=== PATIENT | female | born 1955 | race Caucasian/White ===

== ENCOUNTER → 2024-02-19 10:37 | Outpatient (REF) | payer MEDICARE, OTHER, SELFPAY ==
[2024-02-19 11:35] LABS: % Basophils 0.5 % (0-2); % Eosinophils 0.8 % (0-6); % Immature Granulocytes 0.4 % (0-0.5); % Lymphocytes 21.7 % (20.5-51.1); % Monocytes 5.2 % (1.7-9.3); % Neutrophils 71.4 % (42.2-75.2); Absolute Basophils 0.1 10^3/uL (0-0.2); Absolute Eosinophils 0.1 10^3/uL (0-0.7); Absolute Lymphocytes 2.4 10^3/uL (1.2-3.4); Absolute Monocytes 0.6 10^3/uL (0.1-0.6); Absolute Neutrophils 7.9 10^3/uL (1.4-6.5); Hematocrit 43.3 % (37.0-47.0); Hemoglobin 14.5 g/dL (12.0-16.0); Mean Corp Hgb Conc. 33.5 g/dL (33.0-37.0); Mean Corpuscular Hgb 27.8 pg (27.0-31.0); Mean Corpuscular Volume 83.1 fL (81.0-99.0); Mean Platelet Volume 10.9 fL (7.4-10.4); Nucleated Red Blood Cells % 0 %; Platelet Count 280 10^3/uL (130-400); Red Blood Cell Count 5.21 10^6/uL (4.20-5.40); White Blood Cell Count 11.1 10^3/uL (4.8-10.8)
[2024-02-19 11:50] LABS: Glycohemoglobin (HgbA1c) 6.7 % (4.0-5.6)
[2024-02-19 12:09] LABS: ALT (SGPT) 29 U/L (0-35); AST (SGOT) 30 U/L (14-36); Albumin 4.5 g/dl (3.5-5.0); Alkaline Phosphatase 99 U/L (38-126); Blood Urea Nitrogen 12 mg/dl (7-17); Calcium 9.6 mg/dl (8.4-10.2); Carbon Dioxide 26 mmol/L (22-30); Chloride 105 mmol/L (98-107); Glucose 129 mg/dl (70-99); HDL Cholesterol 42 mg/dl; LDL Cholesterol, Calculated 104 mg/dl; Potassium 4.1 mmol/L (3.5-5.1); Sodium 138 mmol/L (135-145); Total Bilirubin 0.5 mg/dl (0.2-1.3); Total Cholesterol 185 mg/dl (50-199); Total Protein 7.1 g/dl (6.3-8.2); Triglyceride 195 mg/dl (10-149); Very Low Density Lipoprotein 39 mg/dl (0-30); eGFR > 60.00
[2024-02-19 12:32] LABS: TSH Reflex To Free T4 0.31 uIU/ml (0.47-4.68)
[2024-02-19 13:01] LABS: Free T4 1.14 ng/dl (0.78-2.19)
== END ==
LOC: REG 10:37
PROVIDERS: ATTENDING PHYSICIAN Internal Medicine
DX: E11.65 Type 2 diabetes mellitus with hyperglycemia (principal); I10 Essential (primary) hypertension; E78.2 Mixed hyperlipidemia
CPT/HCPCS: 36415; 80053; 80061; 83036; 84439; 84443; 85025

== ENCOUNTER → 2024-03-09 10:42 | Outpatient (REF) | payer MEDICARE, OTHER, SELFPAY | LOC: DHCBC/DCA 10:42 | PROVIDERS: ATTENDING PHYSICIAN Internal Medicine Cardiovascular Disease; FAMILY PHYSICIAN Internal Medicine | DX: R07.9 Chest pain, unspecified (principal) | CPT/HCPCS: 78452; 93017; A9500; J2785 ==

== ENCOUNTER → 2024-03-12 10:01 | Outpatient (REF) | payer MEDICARE, OTHER, SELFPAY | LOC: RAD 10:01 | PROVIDERS: ATTENDING PHYSICIAN Internal Medicine | DX: M81.0 Age-related osteoporosis without current pathological fracture (principal) | CPT/HCPCS: 77080 ==

== ENCOUNTER → 2024-03-30 15:10 | Outpatient (REF) | payer MEDICARE, OTHER, SELFPAY | LOC: RAD 15:10 | PROVIDERS: ATTENDING PHYSICIAN Internal Medicine Cardiovascular Disease; FAMILY PHYSICIAN Internal Medicine | DX: I73.9 Peripheral vascular disease, unspecified (principal); Z82.49 Family history of ischemic heart disease and other diseases of the circulatory system | CPT/HCPCS: 76770 ==

== ENCOUNTER → 2024-04-16 11:00 | Outpatient (REF) | payer MEDICARE, OTHER, SELFPAY | LOC: RAD 11:00 | PROVIDERS: ATTENDING PHYSICIAN Internal Medicine Cardiovascular Disease; FAMILY PHYSICIAN Internal Medicine | DX: I73.9 Peripheral vascular disease, unspecified (principal) | CPT/HCPCS: 93922; 93925 ==

== ENCOUNTER → 2024-05-14 13:08 | Outpatient (REF) | payer MEDICARE, OTHER, SELFPAY | LOC: RAD 13:08 | PROVIDERS: ATTENDING PHYSICIAN Surgery Vascular Surgery; FAMILY PHYSICIAN Internal Medicine; REFERRING PHYSICIAN Internal Medicine Cardiovascular Disease | DX: I73.9 Peripheral vascular disease, unspecified (principal) | CPT/HCPCS: 75635; Q9967 ==

== ENCOUNTER → 2024-05-25 15:21 | Outpatient (REF) | payer MEDICARE, OTHER, SELFPAY | LOC: WDC 15:21 | PROVIDERS: ATTENDING PHYSICIAN Nurse Practitioner Adult Health | DX: Z12.31 Encounter for screening mammogram for malignant neoplasm of breast (principal); Z12.39 Encounter for other screening for malignant neoplasm of breast | CPT/HCPCS: 77063; 77067 ==

== ENCOUNTER → 2024-06-17 12:12 | Outpatient (REF) | payer MEDICARE, OTHER, SELFPAY ==
[2024-06-17 14:50] LABS: ALT (SGPT) 30 U/L (0-35); AST (SGOT) 30 U/L (14-36); Albumin 4.1 g/dl (3.5-5.0); Alkaline Phosphatase 91 U/L (38-126); Blood Urea Nitrogen 15 mg/dl (7-17); Calcium 9.2 mg/dl (8.4-10.2); Carbon Dioxide 27 mmol/L (22-30); Chloride 106 mmol/L (98-107); Glucose 117 mg/dl (70-99); HDL Cholesterol 33 mg/dl; LDL Cholesterol, Calculated 93 mg/dl; Potassium 4.3 mmol/L (3.5-5.1); Sodium 138 mmol/L (135-145); Total Bilirubin 0.5 mg/dl (0.2-1.3); Total Cholesterol 162 mg/dl (50-199); Total Protein 6.4 g/dl (6.3-8.2); Triglyceride 182 mg/dl (10-149); Very Low Density Lipoprotein 36 mg/dl (0-30); eGFR > 60.00
[2024-06-17 15:41] LABS: Microalbumin, Random Urine 1.4 mg/dl (0.6-1.7); Microalbumin/creatinine Ratio 6.7 mg/g
[2024-06-18 09:05] LABS: Glycohemoglobin (HgbA1c) 6.8 % (4.0-5.6)
== END ==
LOC: REG 12:12
PROVIDERS: ATTENDING PHYSICIAN Internal Medicine
DX: E11.65 Type 2 diabetes mellitus with hyperglycemia (principal); E78.2 Mixed hyperlipidemia; I10 Essential (primary) hypertension
CPT/HCPCS: 36415; 80053; 80061; 82043; 82570; 83036

== ENCOUNTER 2024-09-01 08:24 | Inpatient (IN) | payer MEDICARE, OTHER, SELFPAY ==
[2024-08-20 09:35] VITALS: BMI 35.2
[2024-08-20 09:57] LABS: % Basophils 0.4 % (0-2); % Immature Granulocytes 0.3 % (0-0.5); % Lymphocytes 24.2 % (20.5-51.1); % Monocytes 5.2 % (1.7-9.3); % Neutrophils 68.9 % (42.2-75.2); Absolute Basophils 0.1 10^3/uL (0-0.2); Absolute Eosinophils 0.1 10^3/uL (0-0.7); Absolute Lymphocytes 2.8 10^3/uL (1.2-3.4); Absolute Monocytes 0.6 10^3/uL (0.1-0.6); Absolute Neutrophils 7.9 10^3/uL (1.4-6.5); Hematocrit 42.7 % (37.0-47.0); Hemoglobin 14.6 g/dL (12.0-16.0); Mean Corp Hgb Conc. 34.2 g/dL (33.0-37.0); Mean Corpuscular Hgb 28.4 pg (27.0-31.0); Mean Corpuscular Volume 83.1 fL (81.0-99.0); Nucleated Red Blood Cells % 0 %; Platelet Count 266 10^3/uL (130-400); Red Blood Cell Count 5.14 10^6/uL (4.20-5.40); Red Cell Dist. Width 13.4 % (11.5-14.5); White Blood Cell Count 11.4 10^3/uL (4.8-10.8)
[2024-08-20 10:16] LABS: Blood Urea Nitrogen 15 mg/dl (7-17); Calcium 9.7 mg/dl (8.4-10.2); Carbon Dioxide 26 mmol/L (22-30); Chloride 100 mmol/L (98-107); Estimated Creatinine Clearance 76 ml/min; Glucose 187 mg/dl (70-99); Potassium 3.9 mmol/L (3.5-5.1); Sodium 141 mmol/L (135-145); eGFR > 60.00
[2024-08-20 10:17] LABS: APTT 25.2 Sec (23.4-35.0); INR 1.03; PT 13.5 Sec (11.4-14.6)
[2024-09-01] VITALS (25 sets, daily range): BP systolic 96–179; BP diastolic 42–121; BMI 35.1
[2024-09-01] MEDS: NSS 500 IV (09:09)
--- NOTE | 2024-09-01 09:09 | HP.FOC2 ---
Focused History & Physical
Chief Complaint
HPI:
Chief Complaint: PAD
HPI / Indication for Planned Procedure: 69-year-old female here for planned right common femoral endarterectomy, retrograde iliac balloon/stenting, possible bypass. Patient admits she is at her baseline health today with no recent illnesses or
changes to her medications. Patient wishes to proceed with planned procedure.
Relevant Past Medical History: Other (Arthritis, hypertension, shingles, GERD, fatty liver, cataract, diabetes)
Relevant Social History: Tobacco Use (Former)
Relevant Family History: Positive for (Hypertension, diabetes, AAA, cancer)
Relevant Past Surgical History: Positive for (Appendectomy, left shoulder surgery, multiple spine surgeries, bilateral hip replacements)
Medication
See Medication form for detailed medications: Yes
Medication List (including Herbals & OTC):
acetaminophen 325 mg tablet (Tylenol) 650 mg PO Q4H PRN PAIN 09/01/24
aspirin 81 mg chewable tablet 81 mg PO DAILY 09/01/24
atorvastatin 10 mg tablet 10 mg PO DAILY 09/01/24
bismuth subsalicylate 262 mg/15 mL oral suspension (Pepto-Bismol) 524 mg PO HS PRN HEART BURN 09/01/24
cholecalciferol (vitamin D3) 50 mcg (2,000 unit) capsule (Vitamin D3) 50 mcg PO DAILY 09/01/24
coenzyme Q10 10 mg capsule (Co Q-10) 10 mg PO DAILY 09/01/24
metformin 500 mg tablet 500 mg PO DAILY 09/01/24
multivitamin 1 tab PO DAILY 09/01/24
omega 8-nne-qyz-fish oil 1,000 mg (120 mg-180 mg) capsule (Fish Oil) 1 cap PO DAILY 09/01/24
omeprazole 20 mg capsule,delayed release 20 mg PO DAILY 09/01/24
valsartan 160 mg-hydrochlorothiazide 12.5 mg tablet 1 tab PO DAILY 09/01/24
Medications Reviewed: Yes
Allergies and Reactions
Patient has Allergies: No
Noted Allergies and Reactions:
Allergy/AdvReac Type Severity Reaction Status Date / Time
SEASONAL Allergy Unknown Uncoded 09/01/24 08:53
Pertinent Physical Exam
All Other Systems: Negative
Head/Neck: Normal
Lungs: Normal
Heart: Normal
Abdomen: Normal
Extremities: Normal
Neurological: Normal
Diagnosis / Assessment
Severe peripheral arterial disease
Plan / Procedure
69-year-old female with severe PAD, here today for planned right common femoral endarterectomy, retrograde iliac stenting, possible bypass with Dr. Zarate.
Anesthesia/Sedation to be done by Anesthesia Provider: Yes
[2024-09-01] MEDS: PERIDEX 0.12% ORAL RINSE 15 ML PO (09:10)
[2024-09-01] MEDS: BACTROBAN NASAL 1 GRAM NASAL (09:10)
[2024-09-01 09:29] LABS: Glucose - Point of Care 151 mg/dl (70-99)
--- NOTE | 2024-09-01 10:41 | W.SUR.PREOP ---
Pre-Operative Surgical Note
-
I have examined this patient prior to the performance of the scheduled procedure.
The patient's condition is unchanged from the time of the current History and
Physical and the patient is able to undergo the scheduled procedure.
[2024-09-01 12:50] LABS: ACT-LR - POC 279 Seconds (116-155)
[2024-09-01 13:53] LABS: ACT-LR - POC 289 Seconds (116-155)
[2024-09-01 14:52] LABS: ACT-LR - POC 208 Seconds (116-155)
[2024-09-01 15:55] LABS: Glucose - Point of Care 183 mg/dl (70-99)
[2024-09-01 16:00] LABS: Hematocrit 37.2 % (37.0-47.0); Hemoglobin 12.6 g/dL (12.0-16.0); Mean Corp Hgb Conc. 33.9 g/dL (33.0-37.0); Mean Corpuscular Hgb 28.8 pg (27.0-31.0); Mean Corpuscular Volume 85.1 fL (81.0-99.0); Mean Platelet Volume 10.8 fL (7.4-10.4); Platelet Count 216 10^3/uL (130-400); Red Blood Cell Count 4.37 10^6/uL (4.20-5.40); Red Cell Dist. Width 14.4 % (11.5-14.5); White Blood Cell Count 13.7 10^3/uL (4.8-10.8)
--- NOTE | 2024-09-01 16:05 | PTCARENOTE ---
5fr femoral sheath pulled by Gavin TORRES at 15:56. Manual pressure held for 20 minutes, hemostasis obtained at 16:17. No bleeding or hematoma noted. SUPPLIER RELATIONSHIP DIRECTOR at bedside for site check. 4x4 tegaderm placed to site BP at start of hold 92/58 by
radial A line, HR 72 NSR. Post hemostasis BP 117/51 HR 67. Left DP pulse confirmed with doppler.
[2024-09-01 16:17] LABS: INR 1.18; PT 14.8 Sec (11.4-14.6)
[2024-09-01 16:18] LABS: APTT 28.8 Sec (23.4-35.0)
--- NOTE | 2024-09-01 16:25 | CON.INTV ---
Consultation
Consultation Request
Date/Time Consultation Requested: 09/01/2024-4:30 PM
Date/Time Consultation Performed: 09/01/2024-4:30 PM
Requesting Provider: Vascular surgery
Performing Provider: Dr. Reed
Reason for Consultation: Postoperative critical care management
Medical History
-
Chief Complaint: PAD
History of Present Illness:
69-year-old female with a history of hypertension, obesity, fatty liver, GERD, cataract, diabetes who is a former smoker and has significant PAD-underwent right common femoral endarterectomy with stenting-outside production inspector consulted for postoperative
critical care management 09/01/2024. The patient is seen postoperatively in the surgical intensive care unit. Operative records were reviewed. She denies any shortness of breath, chest pain, productive cough, pleurisy, abdominal pain, increased
leg swelling or new numbness. Pulses are intact.
Past Medical History
Past Medical History: None (Hypertension. GERD. Obesity. Fatty liver. Cataract. Diabetes. Shingles. Former smoker. Appendectomy. Left shoulder surgery. Spine surgeries. Bilateral hip replacements.)
Social History
Tobacco: Former Smoker ([id number] quit 3 years ago)
Living: With Family
Occupational Exposures: No known asbestos exposure
Environmental Exposures: No known tuberculosis exposure
Family History
Family History: Other (Father-hypertension diabetes and atrial fibrillation. Mother-aortic aneurysm. Paternal aunt-breast cancer. Sister-pancreatic cancer.)
Allergies / Home Medications
Allergies
Allergy/AdvReac Type Severity Reaction Status Date / Time
pollen extracts Allergy SEASONAL Verified 09/01/24 15:58
Home Medications
�Medication �Instructions �Recorded �Confirmed �Last Taken �Type
acetaminophen 325 mg tablet 650 mg PO Q4H PRN PAIN 09/01/24 09/01/24 Unknown History
(Tylenol)
aspirin 81 mg chewable tablet 81 mg PO DAILY 09/01/24 09/01/24 08/31/24 12:00 History
atorvastatin 10 mg tablet 10 mg PO DAILY 1009/01/24 08/31/24 12:00 History
bismuth subsalicylate 262 mg/15 mL 524 mg PO HS PRN HEART BURN 09/01/24 09/01/24 Unknown History
oral suspension (Pepto-Bismol)
cholecalciferol (vitamin D3) 50 50 mcg PO DAILY 09/01/24 09/01/24 08/31/24 12:00 History
mcg (2,000 unit) capsule (Vitamin
D3)
coenzyme Q10 10 mg capsule (Co 10 mg PO DAILY 09/01/24 09/01/24 08/31/24 12:00 History
Q-10)
metformin 500 mg tablet 500 mg PO DAILY 09/01/24 09/01/24 08/31/24 12:00 History
multivitamin 1 tab PO DAILY 09/01/24 09/01/24 08/31/24 12:00 History
omega 2-bnp-jdo-fish oil 1,000 mg 1 cap PO DAILY 09/01/24 09/01/24 08/31/24 12:00 History
(120 mg-180 mg) capsule (Fish Oil)
omeprazole 20 mg capsule,delayed 20 mg PO DAILY 09/01/24 09/01/24 08/31/24 12:00 History
release
valsartan 160 1 tab PO DAILY 09/01/24 09/01/24 08/31/24 12:00 History
mg-hydrochlorothiazide 12.5 mg
tablet
Review of Systems
-
Unable to Obtain full review of systems at this time due to: Other (Per HPI)
Vitals / Labs / Diagnostic Testing
Vital Signs
Temp Pulse Resp BP Pulse Ox
99.6 F 87 18 104/66 97
09/01/24 15:45 09/01/24 16:00 09/01/24 16:00 09/01/24 16:00 09/01/24 16:00
Lab Data
09/01/24 15:51
Laboratory Results
09/01/24
15:51
PT 14.8 H
INR 1.18
APTT 28.8
Diagnostic Testing:
Physical Exam
-
Exam:
Well-nourished and well-developed in no apparent distress
HEENT-atraumatic, normocephalic
Neck-supple, no JVD, no bruit
Heart-regular rate and rhythm-no murmurs, rubs or gallops
Chest-clear to auscultation, no wheezes, crackles
Back-no tenderness
Abdomen-soft, nontender, nondistended, no hepatosplenomegaly
Extremities-no cyanosis, clubbing, edema and good peripheral pulses
Integument-intact, no rashes, lesions or ecchymosis
Neurology-alert and oriented, nonfocal motor and sensory exam
Assessment
-
69-year-old female with a history of hypertension, obesity, fatty liver, GERD, cataract, diabetes who is a former smoker and has significant PAD-underwent right common femoral endarterectomy with stenting-outside production inspector consulted for postoperative
critical care management 09/01/2024.
PAD status post right common femoral endarterectomy and patch angioplasty/angioplasty and stenting right external iliac artery-Dr. Zarate-09/01/2024
Mild leukocytosis-WBC 13.7
Hyperglycemia-blood sugar 182
Obstructive sleep apnea suspected
Conditions present prior to admission:
Hypertension.
GERD.
PAD-with claudication both lower extremities
Vasovagal syncope-1989 [facility]-no recurrence
Obesity.
Fatty liver.
Cataract.
Diabetes.
Shingles.
Former [id number]-year quit 2012
Appendectomy. Left shoulder surgery. Spine surgeries. Bilateral hip replacements.
Plan
Postoperative surgical intensive care unit monitoring
Supplemental oxygen as needed
Incentive spirometry
Aspiration precautions
Nebulizers if needed-currently not bronchospastic
Obstructive sleep apnea suspected-heavy snoring and witnessed apneas
Neuro and vascular checks per protocol
Vascular surgery following-correspondence and operative notes reviewed
Monitor hemoglobin
Transfuse if needed
Monitor blood sugar
Insulin supplementation as needed
DVT prophylaxis
Early nutrition
Early mobilization
Outpatient pulmonary evaluation-former smoker, needs yearly low-dose lung cancer screening CT and likely has obstructive sleep apnea-needs polysomnogram
Critical care statement: A total of 50 minutes of critical care time was provided for this patient today. This includes management of unstable vital signs, evaluation of the patient at bedside, reviewing the patient's pertinent medical records
including radiographs, microbiology, laboratory evaluations, and discussion with primary team, consultants, pharmacy, nutrition, physical therapy, case management, charge nurse, critical care nursing, and respiratory therapy.
Diagnostic data:
Chest x-ray 08/20/2024-NAD, no convincing focal infiltrates
CT abdomen 05/14/2024-lung bases are clear, 50 to 75% stenosis common femoral and superficial femoral arteries on the right side and 50% stenosis on the left and 50 to 75% stenosis left SFA
Nuclear stress test 03/09/2024-EF 73%, moderate risk study
Data Reviewed
-
EKG: Report reviewed by me
Radiology: Report reviewed by me
CT Scan: Report reviewed by me
Medical Tests (Nuc Med, Echo etc): Report reviewed by me
Labs: Labs reviewed by me
Old Records: Reviewed
Critical Care Time (in minutes): 50
[2024-09-01 16:36] LABS: Blood Urea Nitrogen 16 mg/dl (7-17); Calcium 8.3 mg/dl (8.4-10.2); Carbon Dioxide 23 mmol/L (22-30); Chloride 107 mmol/L (98-107); Estimated Creatinine Clearance 87 ml/min; Glucose 182 mg/dl (70-99); Potassium 3.6 mmol/L (3.5-5.1); Sodium 143 mmol/L (135-145); eGFR > 60.00
[2024-09-01] MEDS: DILAUDID 0.25 MG IV (16:52)
[2024-09-01] MEDS: NSS 1000 IV (17:12)
[2024-09-01 18:13] LABS: Glucose - Point of Care 212 mg/dl (70-99)
--- NOTE | 2024-09-01 18:45 | PTCARENOTE ---
Pt arrived to ICU from PACU, s/p R common FEA with ileac stenting. Pt awake and alert, oriented x3, Good sensation of all exts. L rad A-line with + cuff correlation. NS @ 80 ml/hr via L AC int. Pt afeb, BP stable 111/50. + pulses with doppler noted
on DPs and PTs bilat. Dry drsg on L groin , no hematoma or bleeding, dry drsg with ROSE MARIE drain on R groin, also no hematoma or bleeding noted. Pt on 2l nc, O2 sat=98%, lobes clear, sl diminished at bases bilat. Abd round, lg, +BSs, Clear liq dinner
ordered. Zarate cath in place, draining mod amt of yellow urine. All questions answered, pt's sister in room, call frausto at pt's side.
[2024-09-01] MEDS: NOVOLOG FLEXPEN-LOW RESISTANCE 2 UNITS SC (18:53)
--- NOTE | 2024-09-01 19:53 | OR.RPT ---
Operative Report
Operative Report
Date of Operation: 09/01/2024
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
Post Op Diagnosis: Severe iliofemoral peripheral arterial occlusive disease with debilitating right lower extremity claudication
Procedure:
1.) Right common femoral artery endarterectomy with patch angioplasty using bovine pericardium
2.) Balloon angioplasty and stenting of right external iliac artery (overlapping [place] VBX stents 7 mm x 59 mm proximal; 7 mm x 59 mm mid; 7 mm x 39 mm distal)
3.) Ultrasound-guided percutaneous access to the left common femoral artery
4.) Diagnostic aortobiiliac arteriogram
Surgeon: Surya Zarate III, MD
Assembly Leader: Elly Meléndez MD PGY-8
Anesthesia: General
Complications: None
Estimated Blood Loss: 50 cc
History and Indications for Procedure: 69-year-old female with severe right-sided iliofemoral disease. We brought her to the operating room for hybrid revascularization.
Procedure in Detail: Glenna Bradford was correctly identified and placed supine on the operating table. After adequate induction of anesthesia, the abdomen, pelvis, and bilateral groins to the thighs were prepped and draped in usual sterile
fashion. Preoperative antibiotics were administered. A time-out procedure was performed with the nursing and anesthesia staff confirming the patient's identity as well as the nature and laterality of the procedure. Ultrasound guidance was used to
identify the right common femoral artery and femoral bifurcation. This was marked at the skin level and the incision was planned accordingly. I made a vertical incision over the right groin. Electrocautery was used to dissect the subcutaneous
tissue. Lymphatics were ligated and divided between silk ties and metal clips. Through a combination of sharp dissection and electrocautery, I identified the common femoral artery. The distal external iliac artery was encircled with a vessel loop
underneath the inguinal ligament. Dissection was then continued distally. The femoral bifurcation was identified as well as the proximal superficial femoral artery and profunda femoral artery. The proximal superficial femoral artery was encircled
with a vessel loop. The proximal profunda femoral artery was encircled with a vessel loop.
The patient was systemically heparinized. I punctured the right BOX FINISHER in a retrograde fashion with a micropuncture needle and upsized to a 5 Fr sheath over a Bentson wire. We attempted to cross the right external iliac artery occlusion retrograde
using a Glidewire and Quickcross catheter but could not reenter proximally into the true lumen despite multiple attempts. I therefore decided to try an up and over approach. Under ultrasound guidance the left common femoral artery was identified.
The proximal and distal extent of the femoral head was marked at the skin level. Under ultrasound guidance the left common femoral artery was punctured with a micropuncture needle in a retrograde fashion and upsized to a 5 Stateless sheath over a
Bentson wire. The Bentson wire was advanced into the distal abdominal aorta along with a soriano's hook catheter. A diagnostic aortobiiliac arteriogram was performed demonstrating a patent distal abdominal aorta. The right common iliac artery
was patent with peripheral calcification identified. The right internal iliac artery was widely patent. The right external iliac artery was occluded.
I selected the right internal iliac artery with a Glidewire and soriano's the catheter. I was then able to advance the catheter up and over the aortic bifurcation into the iliac bifurcation. I was then able to advance the Glidewire through the
right external iliac artery occlusion into the distal external iliac artery. Through the 5 Stateless sheath in the right femoral access I then snared the up and over Glidewire and pulled it out through the 5 Stateless sheath thereby establishing up and
over wire access. I then carefully advanced the Quickcross catheter retrograde over the Glidewire from the 5 Stateless sheath on the right to the aortic bifurcation. I then pulled the wire back and readvanced the Glidewire into the abdominal aorta
without difficulty. I then exchanged out for a [place] wire. I then upsized to a 6 Stateless 45 cm sheath and brought that to the right common iliac artery. Under roadmap guidance and oblique view I then brought into position a 7 mm x 59 mm [place] VBX
stent. This was positioned in the desired location in order to preserve the internal iliac artery. The 6 Stateless sheath was retracted to fully expose the stent and the stent was deployed by inflating the balloon to nominal pressure. Following this
I then brought an additional 7 mm x 59 mm [place] VBX stent into position extending this more distally in the external iliac artery. The stent was deployed in the desired location. A final stent, 7 mm x 39 mm [place] VBX was positioned in the more
distal external iliac artery down to the level of the inguinal ligament. This final balloon was left inflated inside the stent for proximal control.
The distal vessel loops were secured. The 6 Stateless sheath was retracted from the arteriotomy over the stent delivery shaft. An 11-blade and Sheikh scissors were used to extend the arteriotomy on the common femoral artery. The arteriotomy was
carried distally on to the proximal superficial femoral artery. The arteriotomy was extended up to the proximal common femoral artery. An endarterectomy was performed in the standard fashion with a [place] elevator. The proximal extent of the
plaque was transected and then additional elements of plaque were pulled out from the distal external iliac artery using forceps and clamps. The distal end of the plaque feathered nicely at the femoral bifurcation with no distal intimal flap
identified. The proximal superficial femoral artery and profunda femoral artery back bled nicely and were individually flushed with heparinized saline solution. The endarterectomy plane was then irrigated with heparinized saline solution and any
loose fronds of tissue were removed. I brought onto the field a precut piece of bovine pericardium and this was used as a patch. The patch was then sewn in place using a running 5-0 Prolene suture. Prior to the completion of the anastomosis I
deflated the balloon and removed the wire, sheath and balloon from the artery. I forward and back bled the artery. The anastomosis was then completed. The proximal and distal vessel loops were then released. There was an excellent pulse in the
common femoral artery, proximal superficial femoral artery and proximal profunda femoral artery. Excellent quality doppler signals were audible in the superficial femoral artery and profunda femoral artery. The patch suture line was closely
inspected for hemostasis which was achieved.
Hemostasis was achieved in the wound bed. Protamine was administered. The wound was irrigated with copious amounts of warm saline. The wound was then closed in multiple layers and a sterile ROSE MARIE dressing was applied. The left femoral sheath was
secured in place with the plan to pull it in the recovery room.
The patient tolerated the procedure well and was taken to the PACU in stable condition.
Attestation: I was present and responsible for the entire procedure
Signed:
Surya Zarate III, MD
[facility]
[phone] (iypv)
--- NOTE | 2024-09-01 20:00 | PTCARENOTE ---
Assumed care of pt from dayshift. Pt AAOx3, good movement and sensation of low exts. L radial A-line zeroed, + cuff correlation. VSS. B/L groin dsgs CDI, no hematoma or bleeding. R groin dsg with ROSE MARIE drain. + DP and PT pulses with Doppler. Pt on
2L NC, O2 sat 97-98%. Lungs CTA. Zarate draining clear yellow urine. Call frausto within reach.
[2024-09-01 21:45] LABS: Glucose - Point of Care 193 mg/dl (70-99)
[2024-09-01] MEDS: HEPARIN 5000 UNITS SC (23:09)
[2024-09-01] MEDS: HEPARIN SC (23:37)
[2024-09-02] VITALS (20 sets, daily range): BP systolic 105–138; BP diastolic 47–82; BMI 35.2
--- NOTE | 2024-09-02 | PTCARENOTE ---
Pt reassessed. no changes noted. Call frausto within reach.
--- NOTE | 2024-09-02 04:23 | DOWNTIME ---
There was a [employer] Knowledge Client Supervisor Housecleaner Downtime on 09/02/2024 from 0100 to 09/02/2024 at 0355. Downtime documentation of patient's care, including medication administrations, has been reconciled in the electronic record per guidelines. Refer to the
patient's paper chart under the miscellaneous tab to see printed paper medication records and downtime forms.
[2024-09-02] MEDS: NSS 1000 IV (04:47)
[2024-09-02 05:01] LABS: Hematocrit 33.6 % (37.0-47.0); Hemoglobin 11.3 g/dL (12.0-16.0); Mean Corp Hgb Conc. 33.6 g/dL (33.0-37.0); Mean Corpuscular Hgb 27.6 pg (27.0-31.0); Mean Corpuscular Volume 82.2 fL (81.0-99.0); Mean Platelet Volume 11.2 fL (7.4-10.4); PT 14.1 Sec (11.4-14.6); Platelet Count 238 10^3/uL (130-400); Red Blood Cell Count 4.09 10^6/uL (4.20-5.40); Red Cell Dist. Width 14.5 % (11.5-14.5); White Blood Cell Count 13.3 10^3/uL (4.8-10.8)
[2024-09-02 05:16] LABS: Blood Urea Nitrogen 12 mg/dl (7-17); Calcium 8.5 mg/dl (8.4-10.2); Carbon Dioxide 23 mmol/L (22-30); Chloride 108 mmol/L (98-107); Estimated Creatinine Clearance 101 ml/min; Glucose 135 mg/dl (70-99); Potassium 4.1 mmol/L (3.5-5.1); Sodium 142 mmol/L (135-145); eGFR > 60.00
[2024-09-02] MEDS: PINK BISMUTH 525 MG PO (05:30)
[2024-09-02] MEDS: ROXICODONE 5 MG PO (05:30)
[2024-09-02 07:57] LABS: Glucose - Point of Care 140 mg/dl (70-99)
--- NOTE | 2024-09-02 07:58 | W.PN.VS ---
Addendum entered and electronically signed by Eulalio Rubalcava MD 09/02/24 15:09:
Seen and examined with OUTSIDE MACHINIST HELPER's earlier this a.m. This is a late entry. Patient was without significant complaints. Abdomen is soft, nondistended, nontender. Right groin dressing clean dry and intact. No hematoma. Foot is warm. Palpable PT pulse.
Left groin also flat. Left foot warm with excellent Doppler PT signal. Plan/as discussed and noted below.
Original Note:
Today's Communication / Plan
-
Seen and assessed with Dr. Rubalcava
Assessment/Plan
-
POD #1 Right common femoral artery endarterectomy with patch angioplasty using bovine pericardium
Balloon angioplasty and stenting of right external iliac artery
Plan:
-Out of bed to chair this morning
-DC A-line
-DC IV fluids
-DC Zarate
-May transfer to 2 N./2 S. later today
Subjective Data
-
Date of Service: September 02, 2024
Patient seen and assessed this a.m. with Dr. Rubalcava. No events overnight. Denies pain at this time. Doing well overall.
Objective Data
-
Vital Signs
Temp Pulse Resp BP Pulse Ox
98.3 F 63 10 109/58 98
09/02/24 07:00 09/02/24 07:30 09/02/24 07:30 09/02/24 07:00 09/02/24 07:30
Intake and Output
09/01/24 09/02/24 09/03/24
06:59 06:59 06:59
Intake Total 1620 / 1700 80 / 80
Output Total 1800 / 1800
Balance -180 / -100 80 / 80
Intake:
Oral fluids 460 / 460
IV fluids (Total) 1160 / 1240 80 / 80
NSS 1160 / 1240 80 / 80
Output:
Drain Output (Total) 0 / 0
Right 0 / 0
Urine, Zarate 1800 / 1800
Lab Results
09/02/24 04:39
09/02/24 04:39
Calcium 8.5 mg/dl (8.4-10.2) 09/02/24 04:39
Physical Exam
-
AAOx3
No tachypnea on room air
No tachycardia
Abdomen soft, nontender
Jack site clean, dry, intact, soft. No drainage noted
Puncture site dressing clean, dry, intact, soft, flat
Bilateral feet warm
Palpable right PT pulse, + Doppler signals left PT bilateral DPs
[2024-09-02] MEDS: NOVOLOG FLEXPEN-LOW RESISTANCE SC ×3 (08:07→17:19)
[2024-09-02] MEDS: ORETIC 12.5 MG PO (08:40)
[2024-09-02] MEDS: THERAGRAN 1 TABLET PO (08:41)
[2024-09-02] MEDS: VITAMIN D3 (cholecalciferol) 50 MCG PO (08:41)
[2024-09-02] MEDS: LIPITOR 10 MG PO (08:41)
[2024-09-02] MEDS: HEPARIN 5000 UNITS SC ×3 (08:41→23:51)
[2024-09-02] MEDS: LOW STRENGTH ASPIRIN 81 MG PO (08:41)
[2024-09-02] MEDS: PROTONIX 40 MG PO (08:41)
[2024-09-02 08:48] LABS: Magnesium 1.8 mg/dl (1.6-2.3)
[2024-09-02] MEDS: DIOVAN 160 MG PO (09:03)
[2024-09-02 09:43] LABS: Glycohemoglobin (HgbA1c) 7.3 % (4.0-5.6)
--- NOTE | 2024-09-02 10:21 | PTCARENOTE ---
Assumed care of pt from children's aide RN. AAOx3. NSR on policy services representative. SpO2 96% on room air. VSS. L radial francisco j removed. Gauze and Tegaderm placed over radial site. B/L groin dressing CDI. ROSE MARIE drain to R groin. Zarate removed. IVF discontinued.
Vascular at bedside this morning. Plan for downgrade later today to 2N or 2S. B/L posterior tibial and dorsalis pedis pulses present with doppler. L radial pulse palpable. Pt tolerating clear liquids. Assessment documented. Pt resting in bed, call
frausto in reach. Instructed pt to call for assistance with getting OOB.
--- NOTE | 2024-09-02 11:36 | CM ---
CM following re: discharge planning.
Discussed in Rounds, reviewed pt's chart, met with pt.
Pt is a 69 year old female, admitted with primary dx of POD #1 Right common femoral artery endarterectomy.
Pt reports she lives alone 2SH, 2 steps to enter, has no children, has supportive sister and a dog. Pt described herself as independent in all areas, uses a cane as needed. No VN or SNF history.
PCP: Alberto Jovel
Pharmacy: [facility]
D/C plan: home with anticipated no needs. Sister to transport at discharge.
CM will follow with discharge plan updates as hospitalization progresses
[2024-09-02] MEDS: DILAUDID 0.5 MG IV (11:41)
[2024-09-02 12:46] LABS: Glucose - Point of Care 135 mg/dl (70-99)
--- NOTE | 2024-09-02 14:36 | PTCARENOTE ---
Assessment unchanged. Neurovascular checks remain WDL. Transfer to tele order placed. Awaiting bed assignment.
[2024-09-02] MEDS: TYLENOL 650 MG PO ×2 (16:03→21:46)
[2024-09-02 17:30] LABS: Glucose - Point of Care 147 mg/dl (70-99)
[2024-09-02] MEDS: XARELTO 2.5 MG PO (19:57)
[2024-09-02 21:37] LABS: Glucose - Point of Care 155 mg/dl (70-99)
[2024-09-03] VITALS (7 sets, daily range): BP systolic 106–163; BP diastolic 62–71
[2024-09-03] MEDS: ROXICODONE 5 MG PO ×3 (00:03→17:34)
[2024-09-03] MEDS: DILAUDID 0.5 MG IV (03:51)
[2024-09-03 07:29] LABS: Glucose - Point of Care 158 mg/dl (70-99)
[2024-09-03 07:30] LABS: Hematocrit 34.7 % (37.0-47.0); Hemoglobin 11.8 g/dL (12.0-16.0); Mean Corpuscular Hgb 28.9 pg (27.0-31.0); Mean Corpuscular Volume 84.8 fL (81.0-99.0); Platelet Count 195 10^3/uL (130-400); Red Blood Cell Count 4.09 10^6/uL (4.20-5.40); Red Cell Dist. Width 14.4 % (11.5-14.5); White Blood Cell Count 13.2 10^3/uL (4.8-10.8)
[2024-09-03 07:49] LABS: Blood Urea Nitrogen 14 mg/dl (7-17); Calcium 8.8 mg/dl (8.4-10.2); Carbon Dioxide 24 mmol/L (22-30); Chloride 104 mmol/L (98-107); Estimated Creatinine Clearance 101 ml/min; Glucose 148 mg/dl (70-99); Potassium 3.9 mmol/L (3.5-5.1); Sodium 138 mmol/L (135-145); eGFR > 60.00
--- NOTE | 2024-09-03 08:13 | W.PN.VS ---
Addendum entered and electronically signed by Eulalio Rubalcava MD 09/03/24 11:58:
Seen and examined with COMMISSARY MANAGER's. Agree with findings as noted below. Patient without any new complaints. Her abdomen is soft, nondistended, nontender. Right groin dressing is clean dry and intact. Jack dressing intact. No hematoma. Left groin
flat, no hematoma. Feet are both warm and pink with right sided 2+ DP pulse palpable, left side 1+ PT. Plan/as discussed and noted below.
Original Note:
Today's Communication / Plan
-
Seen and assessed with Dr. Rubalcava
Assessment/Plan
-
POD #2 Right common femoral artery endarterectomy with patch angioplasty using bovine pericardium
Balloon angioplasty and stenting of right external iliac artery
Plan:
-Physical therapy
-Possible discharge later today pending PT recommendations
-Continue Compass protocol
Subjective Data
-
Date of Service: September 03, 2024
Patient seen at bedside this a.m. with Dr. Rubalcava. No events overnight.
Objective Data
-
Vital Signs
Temp Pulse Resp BP Pulse Ox
99.3 F 75 18 160/71 96
09/03/24 03:40 09/03/24 03:40 09/03/24 03:40 09/03/24 03:40 09/03/24 03:40
Intake and Output
09/02/24 09/03/24 09/04/24
06:59 06:59 06:59
Intake Total 1620 / 1700 1360 / 1360
Output Total 1800 / 1800 470 / 470
Balance -180 / -100 890 / 890
Intake:
Oral fluids 460 / 460 1200 / 1200
IV fluids (Total) 1160 / 1240 160 / 160
NSS 1160 / 1240 160 / 160
Output:
Drain Output (Total) 0 / 0
Right 0 / 0
Urine, Zarate 1800 / 1800 220 / 220
Urine, Voided 250 / 250
Other:
Number of approximated MODERATE 1
amounts of urine
Number of approximated LARGE 1
amounts of urine
Lab Results
09/03/24 05:37
09/03/24 05:37
Calcium 8.8 mg/dl (8.4-10.2) 09/03/24 05:37
Magnesium 1.8 mg/dl (1.6-2.3) 09/01/24 15:51
Physical Exam
-
AAOx3
No tachypnea on room air
No tachycardia
Abdomen soft, nontender
Jack site clean, dry, intact, soft. No drainage noted
Puncture site clean, dry, intact, soft, dressing removed
Bilateral feet warm
Palpable right PT pulse, + Doppler signals left PT bilateral DPs
[2024-09-03] MEDS: NOVOLOG FLEXPEN-LOW RESISTANCE SC ×3 (08:45→17:35)
[2024-09-03] MEDS: LIPITOR 10 MG PO (08:47)
[2024-09-03] MEDS: VITAMIN D3 (cholecalciferol) 50 MCG PO (08:47)
[2024-09-03] MEDS: THERAGRAN 1 TABLET PO (08:47)
[2024-09-03] MEDS: DIOVAN 160 MG PO (08:47)
[2024-09-03] MEDS: ORETIC 12.5 MG PO (08:48)
[2024-09-03] MEDS: XARELTO 2.5 MG PO ×2 (08:48→20:28)
[2024-09-03] MEDS: PROTONIX 40 MG PO (08:48)
[2024-09-03] MEDS: LOW STRENGTH ASPIRIN 81 MG PO (08:48)
[2024-09-03] MEDS: HEPARIN 5000 UNITS SC ×2 (08:48→17:25)
--- NOTE | 2024-09-03 09:20 | W.PA-PDMP ---
[place]-PDMP
-
Checked the [place]- Prescription Drug Monitoring Program website, no red flags identified; safe to proceed with prescription.
[2024-09-03 13:47] LABS: Glucose - Point of Care 156 mg/dl (70-99)
--- NOTE | 2024-09-03 15:54 | CM ---
Met with patient.
PT rec Home Health
Reviewed options - [facility] referral placed in [facility].
PLAN: Home with visiting nurse
Sister to transport at 11am
[facility]
[2024-09-03 18:36] LABS: Glucose - Point of Care 148 mg/dl (70-99)
[2024-09-03 21:31] LABS: Glucose - Point of Care 139 mg/dl (70-99)
[2024-09-04] MEDS: HEPARIN 5000 UNITS SC ×2 (00:16→08:34)
[2024-09-04] MEDS: TYLENOL 650 MG PO ×2 (00:32→11:16)
[2024-09-04] MEDS: BENADRYL 6.25 MG IV (00:50)
[2024-09-04 02:56] VITALS: BP 137/69
[2024-09-04 07:15] VITALS: BP 138/70
[2024-09-04 07:38] LABS: Hemoglobin 12.2 g/dL (12.0-16.0); Mean Corp Hgb Conc. 33.9 g/dL (33.0-37.0); Mean Corpuscular Hgb 28.5 pg (27.0-31.0); Mean Corpuscular Volume 84.1 fL (81.0-99.0); Mean Platelet Volume 11.7 fL (7.4-10.4); Platelet Count 214 10^3/uL (130-400); Red Blood Cell Count 4.28 10^6/uL (4.20-5.40); Red Cell Dist. Width 14.1 % (11.5-14.5); White Blood Cell Count 11.8 10^3/uL (4.8-10.8)
[2024-09-04 08:01] LABS: Blood Urea Nitrogen 12 mg/dl (7-17); Calcium 8.9 mg/dl (8.4-10.2); Carbon Dioxide 27 mmol/L (22-30); Chloride 102 mmol/L (98-107); Estimated Creatinine Clearance 101 ml/min; Glucose 126 mg/dl (70-99); Potassium 3.4 mmol/L (3.5-5.1); Sodium 139 mmol/L (135-145); eGFR > 60.00
[2024-09-04 08:02] LABS: Glucose - Point of Care 151 mg/dl (70-99)
[2024-09-04] MEDS: VITAMIN D3 (cholecalciferol) 50 MCG PO (08:33)
[2024-09-04] MEDS: GLUCOPHAGE 500 MG PO (08:33)
[2024-09-04] MEDS: THERAGRAN 1 TABLET PO (08:33)
[2024-09-04] MEDS: DIOVAN 160 MG PO (08:33)
[2024-09-04] MEDS: LIPITOR 10 MG PO (08:33)
[2024-09-04] MEDS: LOW STRENGTH ASPIRIN 81 MG PO (08:33)
[2024-09-04] MEDS: ORETIC 12.5 MG PO (08:33)
[2024-09-04] MEDS: PROTONIX 40 MG PO (08:33)
[2024-09-04] MEDS: XARELTO 2.5 MG PO (08:33)
[2024-09-04] MEDS: NOVOLOG FLEXPEN-LOW RESISTANCE SC ×2 (08:34→12:42)
--- NOTE | 2024-09-04 08:37 | PN.CDI ---
CDI
- -
CDI:
Physician Documentation Request
Admit Date: 09/01/24 08:24
Dear Vascular Surgery,
Patient admitted for peripheral arterial occlusive disease.
09/01 Operative Report: 'Estimated Blood Loss: 50 cc'
Laboratory Tests
08/20/24 09/02/24
09:46 04:39
Hgb 14.6 11.3 L
Based on the above, could you clarify, in your progress note, which of the following is the most likely type of anemia you are evaluating, monitoring and/or treating?
Acute anemia multifactorial blood loss and hemodilution
Acute blood loss anemia
Hemodilution
Other
Use of terms such as suspected, likely, concern for, or probable (associated with a specific diagnosis that is being evaluated, monitored, or treated as if it exists) are acceptable and can be coded in the inpatient setting, when documented at the
time of discharge.
Thank you,
Teresa Cao RN, BSN
CDI Specialist
Available via [place] text
Please use your independent medical judgment in providing your response.
--- NOTE | 2024-09-04 10:01 | W.PN.VS ---
Today's Communication / Plan
-
See below.
Assessment/Plan
-
POD #3 Right common femoral artery endarterectomy with patch angioplasty using bovine pericardium
Balloon angioplasty and stenting of right external iliac artery
Plan:
-Discharge to [facility] home with visiting nursing
-Continue Compass protocol
-Follow-up placed in discharge instructions
Subjective Data
-
Date of Service: September 04, 2024
Patient seen and examined at bedside, offers no complaints. Reports tolerating p.o. diet. Reports well-managed postoperative pain with current pain medication regimen. Denies nausea, vomiting, fever, and chills. Reports eagerness for discharge.
Objective Data
-
Vital Signs
Temp Pulse Resp BP Pulse Ox
98.2 F 68 16 138/70 94
09/04/24 07:15 09/04/24 07:15 09/04/24 07:15 09/04/24 07:15 09/04/24 07:15
Intake and Output
09/03/24 09/04/24 09/05/24
06:59 06:59 06:59
Intake Total 1360 / 1360 2099
Output Total 470 / 470
Balance 890 / 890 2099
Intake:
Oral fluids 1200 / 1200 2099
IV fluids (Total) 160 / 160
NSS 160 / 160
Output:
Urine, Zarate 220 / 220
Urine, Voided 250 / 250
Other:
Number of approximated MODERATE 1 2
amounts of urine
Number of approximated LARGE 1
amounts of urine
Lab Results
09/04/24 06:01
09/04/24 06:01
Calcium 8.9 mg/dl (8.4-10.2) 09/04/24 06:01
Magnesium 1.8 mg/dl (1.6-2.3) 09/01/24 15:51
Physical Exam
-
AAOx3
No tachypnea on room air
No tachycardia
Abdomen soft, nontender
Jakc dressing replaced, CDI, sutures and bianca well-approximated
Puncture site clean, dry, intact, soft, dressing removed
Bilateral feet warm
Palpable right PT pulse, + Doppler signals left PT bilateral DPs
[2024-09-04] MEDS: KCL 40 MEQ PO (10:19)
[2024-09-04] MEDS: ROXICODONE 5 MG PO (11:16)
--- NOTE | 2024-09-04 11:31 | CM ---
Met with patient.
Confirmed [facility] accepted.
IMM explained & signed. In chart.
PLAN: [facility] (Media Office)
Sister to transport
Lisa
Fax #: [phone]
[2024-09-04 11:59] VITALS: BP 135/49
--- NOTE | 2024-09-05 09:23 | W.PN.UPDATE ---
Update Note
Progress Note Update
Patient called after hours physician line to report that she could not afford the Xarelto 2.5 mg PO BID as part of compass protocol. Called pharmacy and cancelled Xarelto and prescribed Plavix 75mg PO daily with aspirin 81mg po daily for DAPT
therapy.
--- NOTE | 2024-09-07 15:19 | W.PN.UPDATE ---
Update Note
Progress Note Update
CDI:
Physician Documentation Request
Admit Date: 09/01/24 08:24
Patient admitted for peripheral arterial occlusive disease.
09/01 Operative Report: 'Estimated Blood Loss: 50 cc'
Laboratory Tests
08/20/24 09/02/24
09:46 04:39
Hgb 14.6 11.3 L
Based on the above, could you clarify, in your progress note, which of the following is the most likely type of anemia you are evaluating, monitoring and/or treating?
Other, insignificant lab finding, returned to normal without intervention before discharge
== END 2024-09-04 14:24 | disposition home health service (06) | DRG 272 ==
LOC: 2 NORTH 08:24
PROVIDERS: Nurse Practitioner; Nurse Practitioner Acute Care; ADMITTING PHYSICIAN Surgery Vascular Surgery; CONSULT PHYSICIAN Internal Medicine Critical Care Medicine; FAMILY PHYSICIAN Internal Medicine
PROC: 04CK3ZZ Extirpation of Matter from Right Femoral Artery, Percutaneous Approach (ICD-10-PCS; 2024-09-01)
PROC: 04UK3KZ Supplement Right Femoral Artery with Nonautologous Tissue Substitute, Percutaneous Approach (ICD-10-PCS; 2024-09-01)
PROC: 047H35Z Dilation of Right External Iliac Artery with Two Drug-eluting Intraluminal Devices, Percutaneous Approach (ICD-10-PCS; 2024-09-01)
PROC: 047E34Z Dilation of Right Internal Iliac Artery with Drug-eluting Intraluminal Device, Percutaneous Approach (ICD-10-PCS; 2024-09-01)
DX: E11.51 Type 2 diabetes mellitus with diabetic peripheral angiopathy without gangrene (principal); I70.211 Atherosclerosis of native arteries of extremities with intermittent claudication, right leg; E11.65 Type 2 diabetes mellitus with hyperglycemia; E66.9 Obesity, unspecified; Z68.35 Body mass index [BMI] 35.0-35.9, adult; I10 Essential (primary) hypertension; K76.0 Fatty (change of) liver, not elsewhere classified; K21.9 Gastro-esophageal reflux disease without esophagitis; M19.90 Unspecified osteoarthritis, unspecified site; D72.829 Elevated white blood cell count, unspecified; I49.3 Ventricular premature depolarization; Z79.82 Long term (current) use of aspirin; Z79.84 Long term (current) use of oral hypoglycemic drugs; Z79.899 Other long term (current) drug therapy; Z96.643 Presence of artificial hip joint, bilateral; Z90.89 Acquired absence of other organs; Z86.19 Personal history of other infectious and parasitic diseases; Z87.891 Personal history of nicotine dependence; Z82.49 Family history of ischemic heart disease and other diseases of the circulatory system; Z83.3 Family history of diabetes mellitus
CPT/HCPCS: 88304; 88311; 35371; 36415; 37221; 71045; 71046; 80048; 82962; 83036; 83735; 85025; 85027; 85610; 85730; 86850; 86900; 86901; 93005; 97162; C1769; C1874; C1894; Q9967

== ENCOUNTER → 2024-10-01 15:06 | Outpatient (REF) | payer MEDICARE, OTHER, SELFPAY | LOC: DHSLP 15:06 | PROVIDERS: ATTENDING PHYSICIAN Internal Medicine Critical Care Medicine; FAMILY PHYSICIAN Internal Medicine | DX: G47.30 Sleep apnea, unspecified (principal); R06.83 Snoring | CPT/HCPCS: 95800 ==

== ENCOUNTER → 2024-10-05 15:02 | Outpatient (REF) | payer MEDICARE, OTHER, SELFPAY | LOC: RAD 15:02 | PROVIDERS: ATTENDING PHYSICIAN Nurse Practitioner Adult Health; FAMILY PHYSICIAN Internal Medicine | DX: Z87.891 Personal history of nicotine dependence (principal) | CPT/HCPCS: 71271 ==

== ENCOUNTER → 2024-10-13 12:29 | Outpatient (REF) | payer MEDICARE, OTHER, SELFPAY | LOC: RAD 12:29 | PROVIDERS: ATTENDING PHYSICIAN Registered Nurse; FAMILY PHYSICIAN Internal Medicine | DX: I73.9 Peripheral vascular disease, unspecified (principal) | CPT/HCPCS: 93922; 93925; 93978 ==

== ENCOUNTER → 2025-03-10 12:14 | Outpatient (REF) | payer MEDICARE, OTHER, SELFPAY ==
[2025-03-10 13:44] LABS: % Basophils 0.4 % (0-2); % Eosinophils 0.8 % (0-6); % Immature Granulocytes 0.4 % (0-0.5); % Monocytes 5.5 % (1.7-9.3); % Neutrophils 70.9 % (42.2-75.2); Absolute Eosinophils 0.1 10^3/uL (0-0.7); Absolute Lymphocytes 2.3 10^3/uL (1.2-3.4); Absolute Monocytes 0.6 10^3/uL (0.1-0.6); Absolute Neutrophils 7.5 10^3/uL (1.4-6.5); Hematocrit 43.2 % (37.0-47.0); Hemoglobin 14.4 g/dL (12.0-16.0); Mean Corp Hgb Conc. 33.3 g/dL (33.0-37.0); Mean Corpuscular Hgb 27.6 pg (27.0-31.0); Mean Corpuscular Volume 82.8 fL (81.0-99.0); Mean Platelet Volume 11.1 fL (7.4-10.4); Nucleated Red Blood Cells % 0 %; Platelet Count 273 10^3/uL (130-400); Red Blood Cell Count 5.22 10^6/uL (4.20-5.40); Red Cell Dist. Width 13.6 % (11.5-14.5); White Blood Cell Count 10.6 10^3/uL (4.8-10.8)
[2025-03-10 14:06] LABS: ALT (SGPT) 47 U/L (0-35); AST (SGOT) 35 U/L (14-36); Albumin 4.1 g/dl (3.5-5.0); Alkaline Phosphatase 104 U/L (38-126); Blood Urea Nitrogen 15 mg/dl (7-17); Carbon Dioxide 28 mmol/L (22-30); Chloride 102 mmol/L (98-107); Direct Bilirubin 0.2 mg/dl (0.0-0.4); Glucose 116 mg/dl (70-99); HDL Cholesterol 31 mg/dl; LDL Cholesterol, Calculated 101 mg/dl; Potassium 3.8 mmol/L (3.5-5.1); Sodium 141 mmol/L (135-145); Total Bilirubin 0.7 mg/dl (0.2-1.3); Total Cholesterol 172 mg/dl (50-199); Total Protein 6.6 g/dl (6.3-8.2); Triglyceride 200 mg/dl (10-149); Very Low Density Lipoprotein 40 mg/dl (0-30); eGFR > 60.00
[2025-03-10 14:13] LABS: Glycohemoglobin (HgbA1c) 7.2 % (4.0-5.6)
[2025-03-10 14:36] LABS: TSH Reflex To Free T4 0.34 uIU/ml (0.47-4.68)
[2025-03-10 15:06] LABS: Free T4 1.18 ng/dl (0.78-2.19)
== END ==
LOC: REG 12:14
PROVIDERS: ATTENDING PHYSICIAN Nurse Practitioner; FAMILY PHYSICIAN Internal Medicine
DX: I10 Essential (primary) hypertension (principal); E11.65 Type 2 diabetes mellitus with hyperglycemia; E78.2 Mixed hyperlipidemia; I73.9 Peripheral vascular disease, unspecified; K76.0 Fatty (change of) liver, not elsewhere classified; R10.32 Left lower quadrant pain
CPT/HCPCS: 36415; 80053; 80061; 82248; 83036; 84439; 84443; 85025

== ENCOUNTER 2025-03-23 06:35 | Day surgery (SDC) | payer MEDICARE, OTHER, SELFPAY ==
[2025-03-23 08:47] LABS: Glucose - Point of Care 144 mg/dl (70-99)
== END 2025-03-23 10:52 | disposition home or self-care (01) ==
LOC: GI 06:35
PROVIDERS: ATTENDING PHYSICIAN Internal Medicine Gastroenterology
DX: K29.70 Gastritis, unspecified, without bleeding (principal); K22.89 Other specified disease of esophagus; K31.7 Polyp of stomach and duodenum; K31.89 Other diseases of stomach and duodenum; R10.13 Epigastric pain; Z87.19 Personal history of other diseases of the digestive system
CPT/HCPCS: 43239; 88305; 82962; 88342

== ENCOUNTER → 2025-04-05 10:49 | Outpatient (REF) | payer MEDICARE, OTHER, SELFPAY | LOC: RAD 10:49 | PROVIDERS: ATTENDING PHYSICIAN Nurse Practitioner; FAMILY PHYSICIAN Internal Medicine | DX: K22.70 Barrett's esophagus without dysplasia (principal); K21.9 Gastro-esophageal reflux disease without esophagitis | CPT/HCPCS: 74246 ==

== ENCOUNTER → 2025-05-11 12:39 | Outpatient (REF) | payer MEDICARE, OTHER, SELFPAY | LOC: DHVS 12:39 | PROVIDERS: ATTENDING PHYSICIAN Surgery Vascular Surgery; FAMILY PHYSICIAN Internal Medicine | DX: I73.9 Peripheral vascular disease, unspecified (principal) | CPT/HCPCS: 93922; 93925; 93978 ==

== ENCOUNTER → 2025-05-25 13:06 | Outpatient (REF) | payer MEDICARE, OTHER, SELFPAY | LOC: WDC 13:06 | PROVIDERS: ATTENDING PHYSICIAN Internal Medicine | DX: Z12.31 Encounter for screening mammogram for malignant neoplasm of breast (principal) | CPT/HCPCS: 77063; 77067 ==

== ENCOUNTER → 2025-06-25 10:29 | Outpatient (REF) | payer MEDICARE, OTHER, SELFPAY ==
[2025-06-25 12:36] LABS: Microalb - Urine Creatinine 164.900 mg/dl
[2025-06-25 12:39] LABS: Microalbumin, Random Urine 0.6 mg/dl (0.6-1.7)
[2025-06-25 12:48] LABS: ALT (SGPT) 44 U/L (0-35); AST (SGOT) 34 U/L (14-36); Albumin 4.1 g/dl (3.5-5.0); Alkaline Phosphatase 107 U/L (38-126); Blood Urea Nitrogen 16 mg/dl (7-17); Calcium 9.0 mg/dl (8.4-10.2); Carbon Dioxide 30 mmol/L (22-30); Chloride 104 mmol/L (98-107); Glucose 146 mg/dl (70-99); HDL Cholesterol 28 mg/dl; LDL Cholesterol, Calculated 109 mg/dl; Potassium 4.3 mmol/L (3.5-5.1); Sodium 139 mmol/L (135-145); Total Protein 6.4 g/dl (6.3-8.2); Very Low Density Lipoprotein 35 mg/dl (0-30); eGFR > 60.00
[2025-06-25 13:32] LABS: Glycohemoglobin (HgbA1c) 7.2 % (4.0-5.6)
== END ==
LOC: REG 10:29
PROVIDERS: ATTENDING PHYSICIAN Registered Nurse; FAMILY PHYSICIAN Internal Medicine
DX: I73.9 Peripheral vascular disease, unspecified (principal); Z01.812 Encounter for preprocedural laboratory examination; I10 Essential (primary) hypertension; E78.2 Mixed hyperlipidemia; E11.65 Type 2 diabetes mellitus with hyperglycemia
CPT/HCPCS: 36415; 80053; 80061; 82043; 82570; 83036

== ENCOUNTER → 2025-06-29 11:10 | Outpatient (REF) | payer MEDICARE, OTHER, SELFPAY | LOC: RAD 11:10 | PROVIDERS: ATTENDING PHYSICIAN Registered Nurse; FAMILY PHYSICIAN Internal Medicine | DX: I73.9 Peripheral vascular disease, unspecified (principal) | CPT/HCPCS: 75635; Q9967 ==

== ENCOUNTER 2025-08-03 07:59 | Inpatient (IN) | payer MEDICARE, OTHER, SELFPAY ==
[2025-07-26 08:49] VITALS: BMI 33.8
[2025-07-26 09:26] LABS: Hematocrit 43.9 % (37.0-47.0); Hemoglobin 14.6 g/dL (12.0-16.0); Mean Corp Hgb Conc. 33.3 g/dL (33.0-37.0); Mean Corpuscular Volume 82.2 fL (81.0-99.0); Nucleated Red Blood Cells % 0 %; Platelet Count 256 10^3/uL (130-400); Red Cell Dist. Width 13.6 % (11.5-14.5)
[2025-07-26 09:29] LABS: INR 0.93; PT 12.8 Sec (11.4-14.6)
[2025-07-26 09:30] LABS: APTT 26.4 Sec (23.4-35.0)
[2025-07-26 09:57] LABS: Blood Urea Nitrogen 17 mg/dl (7-17); Calcium 9.7 mg/dl (8.4-10.2); Carbon Dioxide 26 mmol/L (22-30); Chloride 107 mmol/L (98-107); Estimated Creatinine Clearance 84 ml/min; Glucose 159 mg/dl (70-99); Potassium 4.5 mmol/L (3.5-5.1); Sodium 140 mmol/L (135-145); eGFR > 60.00
[2025-08-03] VITALS (7 sets, daily range): BP systolic 86–141; BP diastolic 47–63
[2025-08-03] MEDS: NSS 500 IV (09:07)
[2025-08-03] MEDS: BACTROBAN NASAL 1 GRAM NASAL (09:07)
[2025-08-03] MEDS: PERIDEX 0.12% ORAL RINSE 15 ML PO (09:07)
[2025-08-03 09:20] LABS: Glucose - Point of Care 135 mg/dl (70-99)
[2025-08-03 11:40] LABS: ACT-LR - POC 368 Seconds (116-155)
[2025-08-03 11:59] LABS: Glucose - Point of Care 148 mg/dl (70-99)
[2025-08-03 12:45] LABS: ACT-LR - POC 266 Seconds (116-155)
[2025-08-03 12:53] LABS: Glucose - Point of Care 176 mg/dl (70-99)
[2025-08-03 13:43] LABS: ACT-LR - POC 252 Seconds (116-155)
--- NOTE | 2025-08-03 14:50 | W.IMMPOSTOP ---
Surgical Immed Post Op Note
-
Primary Surgeon: Dr. Surya Zarate III, MD
Assisting Surgeon: Agusto Rea MD
Pre-op Diagnosis: chronic limb-threatening ischemia
Post-op Diagnosis: chronic limb-threatening ischemia
Procedure Performed: L femoral endarterectomy, stent of right MONORAIL CAR OPERATOR and left common and external iliac artery, stent of left SFA
Anesthesia Type: general
Specimen / Cultures: None
Estimated Blood Loss: 50 cc
Complications: None
Operative Findings: left femoral endarterectomy, retrograde access of patch angioplasty, aortogram, right MONORAIL CAR OPERATOR stenting, left common and external iliac artery stenting, left SFA stenting
[2025-08-03 14:58] LABS: Glucose - Point of Care 194 mg/dl (70-99)
[2025-08-03] MEDS: NOVOLOG vial 1 UNITS SC (15:13)
[2025-08-03 15:15] LABS: Hematocrit 32.6 % (37.0-47.0); Hemoglobin 10.9 g/dL (12.0-16.0); Mean Corp Hgb Conc. 33.4 g/dL (33.0-37.0); Mean Corpuscular Volume 81.3 fL (81.0-99.0); Platelet Count 214 10^3/uL (130-400); Red Cell Dist. Width 13.7 % (11.5-14.5)
[2025-08-03 15:28] LABS: Blood Urea Nitrogen 14 mg/dl (7-17); Calcium 7.4 mg/dl (8.4-10.2); Carbon Dioxide 25 mmol/L (22-30); Chloride 108 mmol/L (98-107); Estimated Creatinine Clearance 84 ml/min; Glucose 194 mg/dl (70-99); Potassium 3.2 mmol/L (3.5-5.1); Sodium 137 mmol/L (135-145); eGFR > 60.00
[2025-08-03] MEDS: NSS 1000 IV (16:04)
[2025-08-03 16:15] LABS: Glucose - Point of Care 219 mg/dl (70-99)
[2025-08-03] MEDS: KCL 160 MEQ IV (16:29)
[2025-08-03] MEDS: NOVOLOG FLEXPEN-LOW RESISTANCE 2 UNITS SC (16:34)
[2025-08-03] MEDS: VITAMIN C 1000 MG PO (17:13)
[2025-08-03] MEDS: PROTONIX 40 MG PO (17:13)
[2025-08-03] MEDS: LIPITOR 10 MG PO (17:14)
[2025-08-03] MEDS: VITAMIN D3 (cholecalciferol) 125 MCG PO (17:14)
[2025-08-03] MEDS: HEPARIN 5000 UNITS SC (17:14)
[2025-08-03] MEDS: TYLENOL 650 MG PO (17:15)
--- NOTE | 2025-08-03 17:28 | PTCARENOTE ---
Received pt from PACU. Pt drowsy from anesthesia but SUBRAMANIAN and follows commands. VSS. Pt c/o pain once more awake, tylenol given as requested. SR with PACs, potassium repleated. 2L NC until pt remains awake. Tolerating sips and meds without issue.
Zarate in place draining yellow urine. L groin incision covered with ROSE MARIE drain, no drainage noted, site soft, no ecchymosis, palpable pulses. NSS infusing.
[2025-08-03] MEDS: DILAUDID 0.5 MG IV (18:52)
--- NOTE | 2025-08-03 20:10 | PTCARENOTE ---
AOx3, pleasant. NSR w/ occasional PACs, palpable pulses. R radial a-line zeroed and transduced, correlates w/ cuff pressure. RA, pulse ox 94%. +bowel sounds, no BM noted. Zarate with clear yellow urine. L groin ROSE MARIE dressing in place, no drainage,
flashing green. C/O pain to L groin, 7/10-PRN dilaudid given and effective. L DP pulse palpable, LLE warm and pink. Safe environment maintained, call frausto within reach.
[2025-08-03] MEDS: ROXICODONE 5 MG PO (23:04)
[2025-08-03 23:17] LABS: Glucose - Point of Care 270 mg/dl (70-99)
[2025-08-03] MEDS: NOVOLOG FLEXPEN 5 UNITS SC (23:29)
[2025-08-04] VITALS (10 sets, daily range): BP systolic 104–144; BP diastolic 52–62; BMI 34.0
[2025-08-04] MEDS: HEPARIN 5000 UNITS SC ×3 (01:50→15:22)
--- NOTE | 2025-08-04 02:22 | DOWNTIME ---
There was a [employer] Client Dramatic Arts Historian Downtime on 08/04/2025 from 0100 to 08/04/2025 at 0215. Downtime documentation of patient's care, including medication administrations, has been reconciled in the electronic record per guidelines. Refer to the
patient's paper chart under the miscellaneous tab to see printed paper medication records and downtime forms.
[2025-08-04 04:20] LABS: Hematocrit 30.3 % (37.0-47.0); Hemoglobin 10.0 g/dL (12.0-16.0); Mean Corp Hgb Conc. 33.0 g/dL (33.0-37.0); Mean Corpuscular Volume 82.1 fL (81.0-99.0); Platelet Count 225 10^3/uL (130-400); Red Cell Dist. Width 14.1 % (11.5-14.5)
[2025-08-04 04:24] LABS: INR 1.09; PT 14.4 Sec (11.4-14.6)
[2025-08-04 04:25] LABS: APTT 26.8 Sec (23.4-35.0)
[2025-08-04 04:36] LABS: Blood Urea Nitrogen 12 mg/dl (7-17); Calcium 8.3 mg/dl (8.4-10.2); Carbon Dioxide 25 mmol/L (22-30); Chloride 110 mmol/L (98-107); Estimated Creatinine Clearance 98 ml/min; Glucose 125 mg/dl (70-99); Magnesium 2.1 mg/dl (1.6-2.3); Potassium 3.8 mmol/L (3.5-5.1); Sodium 138 mmol/L (135-145); eGFR > 60.00
[2025-08-04] MEDS: DILAUDID 0.5 MG IV ×2 (04:40→10:42)
[2025-08-04] MEDS: TUMS EX (EXTRA STRENGTH) CHEWABLE TABLET 600 MG PO (04:50)
[2025-08-04] MEDS: NSS 1000 IV (06:04)
--- NOTE | 2025-08-04 06:07 | PTCARENOTE ---
Pt assessment unchanged. Safe environment maintained, call frausto within reach. Pt assisted w/ repositioning.
--- NOTE | 2025-08-04 07:32 | W.PN.VS ---
Addendum entered and electronically signed by Eulalio Rubalcava MD 08/04/25 14:50:
Seen and examined with SARKIS Molina earlier this a.m. This is a late entry. Patient without significant complaints. Abdomen soft. Left groin dressing clean dry and intact. Groin flat. No hematoma. Feet warm with 2+ right DP pulse, left 1+ or 1+/2+
DP and PT pulses palpable. Plan/as discussed and noted below.
Original Note:
Today's Communication / Plan
-
Below plan reviewed with attending Dr. Eulalio Rubalcava M.D.
Assessment/Plan
-
Assessment: 70-year-old female POD #1 L femoral endarterectomy, stent of right TELEVISION ANCHOR and left common and external iliac artery, stent of left SFA
Plan:
Discontinue IV fluids
Discontinue arterial line
Discontinue Zarate catheter
Out of bed to chair with progression to ambulation as tolerated
PT eval and treat
Continue DAPT of aspirin 81 mg p.o. daily and Plavix 75 mg p.o. daily
Continue neurovascular checks
Subjective Data
-
Date of Service: August 04, 2025
Patient seen and examined, reports well-managed postoperative pain. Tolerating p.o. diet. Does endorse throat discomfort following surgery, making talking challenging but denies difficulty swallowing.
Objective Data
-
Vital Signs
Temp Pulse Resp BP Pulse Ox
98.1 F 66 11 132/62 94
08/04/25 04:29 08/04/25 06:00 08/04/25 06:00 08/04/25 04:05 08/04/25 06:00
Intake and Output
08/03/25 08/04/25 08/05/25
06:59 06:59 06:59
Intake Total 1250 / 1250
Output Total 1070 / 1070
Balance 180 / 180
Intake:
IV fluids (Total) 1090 / 1090
normal saline 1090 / 1090
IV piggybacks 160 / 160
Output:
Urine, Zarate 1070 / 1070
Lab Results
08/04/25 04:04
08/04/25 04:04
Calcium 8.3 mg/dl (8.4-10.2) L 08/04/25 04:04
Phosphorus 3.2 mg/dl (2.5-4.5) 08/04/25 04:04
Magnesium 2.1 mg/dl (1.6-2.3) 08/04/25 04:04
Physical Exam
-
No apparent distress, resting in bed comfortably
No tachycardia
No dyspnea on room air
ABD rotund, nondistended, nontender
Left groin monae dressing clean, dry, and intact, no evidence of hematoma, all surrounding compartments soft
Bilateral feet warm, bilateral DP pulse +1 palpable
Zarate draining clear yellow urine
[2025-08-04 07:52] LABS: Glucose - Point of Care 120 mg/dl (70-99)
[2025-08-04 08:16] LABS: Glycohemoglobin (HgbA1c) 7.3 % (4.0-5.6)
[2025-08-04] MEDS: NOVOLOG FLEXPEN-LOW RESISTANCE SC (08:17)
[2025-08-04] MEDS: THERAGRAN 1 TABLET PO (08:23)
[2025-08-04] MEDS: ROXICODONE 5 MG PO ×2 (08:39→13:35)
--- NOTE | 2025-08-04 09:18 | OR.RPT ---
Operative Report
Operative Report
Date of Operation: 08/03/2025
Pre Op Diagnosis:
1. Debilitating left lower extremity claudication
2. Calcified stenosis involving the left external iliac artery and common femoral artery
3. Diffuse left superficial femoral artery stenosis
4. Current stenosis of the distal right external iliac artery with prior common femoral artery endarterectomy
Post Op Diagnosis:
1. Debilitating left lower extremity claudication
2. Calcified stenosis involving the left external iliac artery and common femoral artery
3. Diffuse left superficial femoral artery stenosis
4. Current stenosis of the distal right external iliac artery with prior common femoral artery endarterectomy
Procedure:
1. Left common femoral artery and distal external iliac artery endarterectomy with patch angioplasty using bovine pericardium
2. Drug-coated balloon angioplasty of right distal external iliac artery stenosis (7 mm x 40 mm Lutonix)
3. Balloon angioplasty and stenting of left external iliac artery stenosis (overlapping 7 mm x 59 mm VBX stents x2)
4. Balloon angioplasty and drug-eluting stent placement to left superficial femoral artery stenosis (overlapping 6 mm x 140 mm Zilver PTX stents x 2)
5. Diagnostic aortobiiliac arteriogram
6. Diagnostic BILATERAL lower extremity arteriograms
Surgeon: Surya Zarate III, MD
Reshipping Clerk: Agusto Rea MD PGY2
Fluoroscopy:
20 minutes
416 mGy
DAP 118.09
Anesthesia: General
Complications: None
Estimated Blood Loss: 50 cc
History and Indications for Procedure: 70-year-old female with debilitating left lower extremity claudication and evidence of recurrent stenosis of the distal right external iliac artery following common femoral endarterectomy previously. She was
brought to the operating room for revascularization
Procedure in Detail: Glenna Bradford was correctly identified and placed supine on the operating table. After adequate induction of anesthesia, the abdomen, pelvis, and bilateral groins to the thighs were prepped and draped in usual sterile
fashion. Preoperative antibiotics were administered. A time-out procedure was performed with the nursing and anesthesia staff confirming the patient's identity as well as the nature and laterality of the procedure. I made a vertical incision over
the left groin. Electrocautery was used to dissect the subcutaneous tissue. Lymphatics were ligated and divided between ties and metal clips. Through a combination of sharp dissection and electrocautery, I identified the common femoral artery.
We then dissected carefully well under the inguinal ligament into the left retroperitoneum to expose the distal left external iliac artery. The distal left external iliac artery was encircled with a vessel loop underneath the inguinal ligament.
Dissection was then continued distally. The femoral bifurcation was identified as well as the proximal superficial femoral artery and profunda femoral artery. The proximal superficial femoral artery and profunda femoral artery were both soft and
encircled with vessel loops individually.
The patient was systemically heparinized. The proximal and distal vessel loops were secured. An 11-blade and Sheikh scissors were used to make and extend the arteriotomy on the common femoral artery. The arteriotomy was carried distally onto the
proximal superficial femoral artery. The arteriotomy was extended up to the distal external iliac artery. A short angled tip hockey-stick clamp was placed on the distal external iliac artery to facilitate endarterectomy. An endarterectomy was
performed in the standard fashion with a Stout elevator. The proximal extent of the plaque was transected and then additional elements of plaque were pulled out from the distal external iliac artery using forceps. The distal end of the plaque
feathered very nicely at the profunda femoral artery origin. The plaque was everted from the distal end of the superficial femoral artery. The endarterectomy plane was then irrigated with heparinized saline solution and any loose fronds of tissue
were removed. I brought onto the field a piece of bovine pericardium and this was fashioned appropriately to be used as a patch. The patch was then sewn in place using a running 5-0 Prolene suture. Prior to the completion of the anastomosis, we
forward and back flushed the artery. The anastomosis was then completed. The proximal clamp and distal vessel loops were then released. There was an excellent pulse in the common femoral artery, profunda femoral artery and proximal superficial
femoral artery. The suture line was closely inspected for hemostasis which was achieved.
Under direct visualization I then punctured the left common femoral artery patch with a micropuncture needle and upsized to a 5 Colombian sheath over a Bentson wire. The Bentson wire and soriano's hook catheter were navigated into the distal
abdominal aorta. A diagnostic aortobiiliac arteriogram was performed which demonstrated a patent distal abdominal aorta. The common iliac arteries were patent bilaterally with no significant stenosis identified. High-grade was identified in the
left external iliac artery proximal to the endarterectomy. A focal moderate to high-grade stenosis was identified in the distal right external iliac artery just beyond the end of the existing stent. The right common femoral endarterectomy,
proximal profunda femoral artery and proximal superficial femoral artery were patent.
Using a Glidewire and shepherds hook catheter we selected the right iliac system. The wire was advanced through the right common iliac, external iliac and common femoral artery. The catheter was tracked up and over into the common femoral artery.
I exchanged out for a Storq wire. I then exchanged out for a 7 Colombian 45 cm sheath. Under roadmap guidance over the Storq wire I brought into position a 7 mm x 40 mm Lutonix drug-coated angioplasty balloon. This was placed in the desired
location, inflated to nominal pressure and held in place for 3-minute inflation. Subsequent arteriogram demonstrated an excellent technical result with significant improvement and only minimal residual stenosis. Satisfied with this result we then
pulled the sheath and wire back into the left external iliac artery. The Storq wire was readvanced into the abdominal aorta. Under roadmap guidance I then placed 2 overlapping 7 mm x 59 mm [place] VBX stents in the left external iliac artery from the
origin of the external down to the distal external iliac artery at the apex of our patch angioplasty. Subsequent arteriogram demonstrated an excellent technical result with widely patent stents and no residual stenosis identified.
Additional runoff arteriogram of the left lower extremity demonstrated sluggish flow throughout the superficial femoral artery with an area of dissection flap and high-grade stenosis in the mid to distal superficial femoral artery. At this point
the 7 Colombian sheath was removed from the common femoral artery patch and the arteriotomy was repaired primarily with an interrupted 5-0 Prolene suture. Hemostasis was achieved at this suture line repair. I then punctured the common femoral artery
patch in an antegrade direction. The micro wire was advanced into the proximal superficial femoral artery and then I upsized to a 6 Colombian sheath over a Fanli websiteson wire. Under roadmap guidance using a Glidewire and quick cross catheter I was able to
navigate across the superficial femoral artery dissection and stenosis and advanced to the popliteal artery. An arteriogram confirmed proper position in the true lumen. I then exchanged out for the Enable Injections wire once again. Two overlapping 6 mm x
140 mm Zilver PTX stents were positioned in the desired location to treat the length of superficial femoral artery disease. These were individually placed and deployed successfully. The stents were then profiled with a 6 mm angioplasty balloon.
Subsequent arteriogram demonstrated an excellent technical result with widely patent stents, brisk flow and no residual stenosis identified. The popliteal artery was patent with no significant stenosis identified. The posterior tibial artery was
patent to the mid calf. The anterior tibial artery flow was sluggish compared to the posterior tibial artery but appeared to be patent to the mid calf.
Satisfied with this result, we then concluded the procedure. The sheath was removed from the patch. The arteriotomy was repaired with an interrupted 5-0 Prolene suture. Heparin was reversed with protamine. The suture line was closely inspected
and hemostasis was achieved. The wound was irrigated with copious amounts of warm saline solution. Hemostasis was achieved within the wound bed. The wound was then closed in multiple layers and sterile dressings were applied.
The patient tolerated the procedure well and was taken to the recovery room in good condition.
Attestation: I was present and responsible for the entire procedure
Signed:
Surya Zarate III, MD
Vascular Surgery
[facility]
--- NOTE | 2025-08-04 10:44 | CON.INTV ---
Addendum entered and electronically signed by Laz Negron MD 08/04/25 17:00:
Is/It Project Manager service will sign off once patient transferred out of ICU. Please call as needed
Original Note:
Consultation
Consultation Request
Date/Time Consultation Requested: 08/03/2025
Date/Time Consultation Performed: 08/04/2025
Medical History
-
Chief Complaint: Claudication
History of Present Illness:
Patient is a 70-year-old female with known history of longstanding smoking and peripheral vascular disease who follows up with vascular surgery services outpatient. In view of peripheral vascular disease and claudication with ongoing symptoms, she
was brought to the hospital today for elective surgical intervention. Postprocedure, she was admitted to ICU for close monitoring and pbx operator service was consulted for further input.
Past Medical History
Past Medical History: None (Hypertension. GERD. Obesity. Fatty liver. Cataract. Diabetes. Shingles. Former smoker. Appendectomy. Left shoulder surgery. Spine surgeries. Bilateral hip replacements.)
Social History
Tobacco: Former Smoker ([id number] quit 3 years ago)
Living: With Family
Occupational Exposures: No known asbestos exposure
Environmental Exposures: No known tuberculosis exposure
Family History
Family History: Other (Father-hypertension diabetes and atrial fibrillation. Mother-aortic aneurysm. Paternal aunt-breast cancer. Sister-pancreatic cancer.)
Allergies / Home Medications
Allergies
Allergy/AdvReac Type Severity Reaction Status Date / Time
pollen extracts Allergy SEASONAL Verified 07/23/25 12:28
Home Medications
�Medication �Instructions �Recorded �Confirmed �Last Taken �Type
aspirin 81 mg chewable tablet 81 mg PO 1300 Blood Clot 09/01/24 08/03/25 08/03/25 07:00 History
Prevention/Tx
atorvastatin 10 mg tablet 10 mg PO 1300 High Cholesterol 09/01/24 08/03/25 08/02/25 13:00 History
metformin 500 mg tablet 500 mg PO 1300 Diabetes 09/01/24 08/03/25 08/02/25 13:00 History
multivitamin 1 tab PO DAILY Supplement 09/01/24 08/03/25 07/20/25 History
valsartan 160 1 tab PO 1300 Blood Pressure 09/01/24 08/03/25 08/02/25 13:00 History
mg-hydrochlorothiazide 12.5 mg
tablet
Bioma Probiotic 1 cap PO DAILY Supplement 07/23/25 07/23/25 Unknown History
Calcium, D3, K2, B12 1 cap PO DAILY Supplement 07/23/25 08/03/25 07/20/25 History
ascorbic acid (vitamin C) 1,000 mg 1,000 mg PO 1300 Supplement 07/23/25 07/23/25 Unknown History
tablet (Vitamin C)
cholecalciferol (vitamin D3) 125 125 mcg PO 1300 Supplement 07/23/25 08/03/25 07/20/25 History
mcg (5,000 unit) tablet (Vitamin
D3)
clopidogrel 75 mg tablet (Plavix) 75 mg PO 1300 Blood Clot 07/23/25 08/03/25 08/03/25 07:00 History
Prevention/Tx
coenzyme Q10 30 mg capsule 30 mg PO 1300 Supplement 07/23/25 08/03/25 07/20/25 History
omega 4-inv-dzk-fish oil 2 cap PO 1300 High Cholesterol 07/23/25 08/03/25 07/20/25 History
omeprazole 40 mg capsule,delayed 40 mg PO 1300 Gastrointestinal 07/23/25 08/03/25 08/02/25 13:00 History
release Issue
Review of Systems
-
Unable to Obtain full review of systems at this time due to: Other (Patient still somewhat sedated from anesthetics.)
Hematologic/Lymphatic: Other (All 14 systems reviewed and negative except as stated above in the history of present illness.)
Vitals / Labs / Diagnostic Testing
Vital Signs
Temp Pulse Resp BP Pulse Ox
97.3 F 71 28 141/56 96
08/03/25 09:14 08/03/25 09:00 08/03/25 09:00 08/03/25 08:35 08/03/25 09:14
Diagnostic Testing:
Physical Exam
-
HEENT: Normocephalic
Cardiovascular: S1/S2
Respiratory: Clear
GI: Soft and Non Distended
Neurology: Other (Drowsy however wakes up with some stimulation)
General: Comfortable
Assessment
-
Patient is a 70-year-old female with history of claudication and peripheral vascular disease, s/p
1. Left common femoral artery and distal external iliac artery endarterectomy with patch angioplasty using bovine pericardium
2. Drug-coated balloon angioplasty of right distal external iliac artery stenosis (7 mm x 40 mm Lutonix)
3. Balloon angioplasty and stenting of left external iliac artery stenosis (overlapping 7 mm x 59 mm VBX stents x2)
4. Balloon angioplasty and drug-eluting stent placement to left superficial femoral artery stenosis (overlapping 6 mm x 140 mm Zilver PTX stents x 2)
5. Diagnostic aortobiiliac arteriogram
6. Diagnostic BILATERAL lower extremity arteriograms
POD #1
Continue observation following procedure
Follow neurovascular checks per protocol
ASA, Plavix and Statins on board.
Follow BP monitoring and parameters as set by primary team
Cardiac history reviewed
Monitor on telemetry
Pain control per protocol
RASS goal 0
Long standing smoking history with pulmonary nodules.
CXR reviewed indicating no acute disease
Duoneb PRN, no wheezing on exam.
Encouraged IS
Diet advancement per protocol
Aspiration precautions
GI prophylaxis: Protonix
Cr at baseline, follow UO
Critical I/Os
Void trials
Replete electrolytes as needed
No signs/symptoms suspicious for infectious etiology at this time
Will observe off antibiotics for now
Follow temperatures/CBC
Hb and platelets postoperatively stable
DVT prophylaxis: s.c. heparin.
SSI for hyperglycemia
Other medical diagnoses:
- Hypertension
- Diabetes type 2
- Gastroesophageal reflux disease
- Hepatic steatosis
- H/o Syncope
- Pulmonary nodules, <5 mm. Follows up with [facility] pulmonary clinic, Dr. Barrios, will resume after discharge.
- 50 pack year smoking, quit 2020
Critical Care time 62 mins -- The patient is admitted for acute critical illness for the treatment of vital organ failure and/or prevention of further life-threatening conditions. Total care includes time spent in review of history, physical exam,
medications, hemodynamic/ventilator parameters, laboratory data, imaging and discussion with house staff, pharmacy, respiratory therapy, solid plasterer, and nursing
Data:
CXR 07/2025: Unremarkable
LDCT 09/2024: 1. Several small sub-5 mm pulmonary nodules bilaterally.
2. Several small subcentimeter hypodense nodule within the left thyroid gland. This finding can be further evaluated with dedicated thyroid ultrasound.
3. Mild aortic valve and coronary artery calcifications.
4. Hepatic steatosis.
Lexiscan 2023: Negative for ischemia
--- NOTE | 2025-08-04 11:52 | PTCARENOTE ---
pt oob to chair with x 2 assist , pain controled with medications , tolerating diet , Zarate and francisco j DC as ordered , continuing with q 1 hours neurovascular checks
[2025-08-04 12:26] LABS: Glucose - Point of Care 167 mg/dl (70-99)
[2025-08-04] MEDS: NOVOLOG FLEXPEN-LOW RESISTANCE 1 UNITS SC ×2 (13:10→16:45)
[2025-08-04] MEDS: DIOVAN 160 MG PO (13:11)
[2025-08-04] MEDS: VITAMIN D3 (cholecalciferol) 125 MCG PO (13:11)
[2025-08-04] MEDS: PLAVIX 75 MG PO (13:11)
[2025-08-04] MEDS: LOW STRENGTH ASPIRIN 81 MG PO (13:11)
[2025-08-04] MEDS: VITAMIN C 1000 MG PO (13:11)
[2025-08-04] MEDS: PROTONIX 40 MG PO (13:12)
[2025-08-04] MEDS: ORETIC 12.5 MG PO (13:12)
[2025-08-04] MEDS: LIPITOR 10 MG PO (13:12)
--- NOTE | 2025-08-04 14:12 | PTCARENOTE ---
oob for 5 hours tolerated well, ambulated with walker to bathroom without difficulty
--- NOTE | 2025-08-04 16:28 | CM ---
Patient seen at bedside
IA completed
Lives alone with her dog (in kennel now), in a 1 story home [address]
has supportive sister - patient reports she will be staying with her sister in [place] when discharged
address: [address] [place] [address], [facility] [address]
PT/OT to eval
discussed VN - states would like [facility] as she had last year after her surgery
referral placed in [facility] - spoke with Rona from [facility]
PCP: Dr. Alberto Jovel
Pharmacy: [facility]
PLAN: Home with her sister, [facility] [employer] office Fax #: [phone]
[2025-08-04 16:56] LABS: Glucose - Point of Care 186 mg/dl (70-99)
--- NOTE | 2025-08-04 18:04 | PTCARENOTE ---
pt is now telemetry status
[2025-08-04] MEDS: TYLENOL 650 MG PO (19:59)
[2025-08-04 21:21] LABS: Glucose - Point of Care 232 mg/dl (70-99)
[2025-08-04] MEDS: NOVOLOG FLEXPEN 3 UNITS SC (21:40)
[2025-08-05] VITALS (7 sets, daily range): BP systolic 119–128; BP diastolic 48–98; BMI 34.3
[2025-08-05] MEDS: HEPARIN 5000 UNITS SC ×3 (00:45→16:20)
[2025-08-05] MEDS: DILAUDID 0.5 MG IV (02:41)
[2025-08-05 04:26] LABS: Hematocrit 28.9 % (37.0-47.0); Hemoglobin 9.9 g/dL (12.0-16.0); Mean Corp Hgb Conc. 34.3 g/dL (33.0-37.0); Mean Corpuscular Volume 83.3 fL (81.0-99.0); Platelet Count 186 10^3/uL (130-400); Red Cell Dist. Width 14.0 % (11.5-14.5)
[2025-08-05 04:51] LABS: Blood Urea Nitrogen 13 mg/dl (7-17); Calcium 8.0 mg/dl (8.4-10.2); Carbon Dioxide 26 mmol/L (22-30); Chloride 107 mmol/L (98-107); Estimated Creatinine Clearance 84 ml/min; Glucose 180 mg/dl (70-99); Potassium 3.4 mmol/L (3.5-5.1); Sodium 135 mmol/L (135-145); eGFR > 60.00
[2025-08-05 07:47] LABS: Glucose - Point of Care 170 mg/dl (70-99)
--- NOTE | 2025-08-05 07:53 | W.PN.VS ---
Addendum entered and electronically signed by Eulalio Rubalcava MD 08/05/25 16:37:
Seen and examined with [employer] TENDER earlier this a.m. This is a late entry. Agree with findings and plan as noted and discussed below.
Original Note:
Today's Communication / Plan
-
Seen and assessed with Dr. Rubalcava
Assessment/Plan
-
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
Plan:
PT/ambulation
Continue DAPT of aspirin 81 mg p.o. daily and Plavix 75 mg p.o. daily
Simethicone for gas pain
Possible discharge later today
Subjective Data
-
Date of Service: August 05, 2025
Patient seen at bedside this a.m. with Dr. Rubalcava. Patient complains of gas pain. No other complaints. No events overnight.
Objective Data
-
Vital Signs
Temp Pulse Resp BP Pulse Ox
100.8 F H 80 16 119/58 97
08/04/25 19:51 08/05/25 06:00 08/05/25 06:00 08/05/25 04:00 08/05/25 05:55
Intake and Output
08/04/25 08/05/25 08/06/25
06:59 06:59 06:59
Intake Total 1250 / 1330 890 / 890
Output Total 1070 / 1120 150 / 150
Balance 180 / 210 740 / 740
Intake:
Oral fluids 650 / 650
IV fluids (Total) 1090 / 1170 240 / 240
normal saline 1090 / 1170 240 / 240
IV piggybacks 160 / 160
Output:
Urine, Zarate 1070 / 1120 150 / 150
Other:
Number of approximated LARGE 1
amounts of urine
Lab Results
08/05/25 04:12
08/05/25 04:12
Calcium 8.0 mg/dl (8.4-10.2) L 08/05/25 04:12
Phosphorus 3.2 mg/dl (2.5-4.5) 08/04/25 04:04
Magnesium 2.1 mg/dl (1.6-2.3) 08/04/25 04:04
Physical Exam
-
No apparent distress, resting in bed comfortably
No tachycardia
No dyspnea on room air
ABD rotund, nondistended, nontender
Left groin monae dressing clean, dry, and intact, no evidence of hematoma, all surrounding compartments soft
Bilateral feet warm, bilateral DP pulse +1 palpable
--- NOTE | 2025-08-05 09:00 | PTCARENOTE ---
Patient anxious this morning regarding get OOB, pain to incision and potential discharge. Support provided. Pt c/o staff not assisting her in a timely manner. Provided emotional support, pt appears forgetful to events that transpired
yesterday/today. C/o pain to left groin incision site. ROSE MARIE dressing intact, unchanged. PRN tylenol provided for pain control. Pt OOB now for breakfast and requesting to get back to bed 1 hour after getting up. Pt requires encouragement to stay out
of bed. Assisted into comfortable position in chair using pillows, elevated legs, and utilizing air chair cushion. Call [employer], tray table within reach with phone and menu for lunch. Pt states sister will be coming later.
[2025-08-05] MEDS: THERAGRAN 1 TABLET PO (09:16)
[2025-08-05] MEDS: MYLICON 80 MG PO (09:16)
[2025-08-05] MEDS: NOVOLOG FLEXPEN-LOW RESISTANCE 1 UNITS SC ×3 (09:16→16:19)
[2025-08-05] MEDS: TYLENOL 650 MG PO ×2 (09:17→14:01)
[2025-08-05 12:12] LABS: Glucose - Point of Care 167 mg/dl (70-99)
[2025-08-05] MEDS: KCL 20 MEQ PO (12:12)
[2025-08-05] MEDS: ORETIC 12.5 MG PO (12:13)
[2025-08-05] MEDS: LOW STRENGTH ASPIRIN 81 MG PO (12:13)
[2025-08-05] MEDS: DIOVAN 160 MG PO (12:13)
[2025-08-05] MEDS: VITAMIN D3 (cholecalciferol) 125 MCG PO (12:14)
[2025-08-05] MEDS: PROTONIX 40 MG PO (12:14)
[2025-08-05] MEDS: VITAMIN C 1000 MG PO (12:14)
[2025-08-05] MEDS: PLAVIX 75 MG PO (12:14)
[2025-08-05] MEDS: LIPITOR 10 MG PO (12:14)
--- NOTE | 2025-08-05 13:45 | PTCARENOTE ---
Pt ambulated using walker with PT in room and in hallway.
[2025-08-05] MEDS: ROXICODONE 5 MG PO (14:01)
--- NOTE | 2025-08-05 16:20 | CM ---
Possible discharge today. Discharge POC: Will go to her sisters home at: [address], [place] [address] with [facility] [employer] office RN, PT/OT services. Fax #: [phone]
[2025-08-05 16:38] LABS: Glucose - Point of Care 153 mg/dl (70-99)
--- NOTE | 2025-08-05 16:43 | W.PA-PDMP ---
[place]-PDMP
-
Checked the [place]- Prescription Drug Monitoring Program website, no red flags identified; safe to proceed with prescription.
--- NOTE | 2025-08-05 16:43 | W.DS.TRANS ---
DC Summary - Manager Msw
-
Discharge Instructions:
Discharge Diagnosis/Procedures Femoral endarterectomy
Drug-coated balloon angioplasty of right distal
external iliac artery stenosis
Balloon angioplasty and stenting of left
external iliac artery stenosis
Balloon angioplasty and drug-eluting stent
placement to left superficial femoral artery
stenosis
Diet As tolerated
Activity No strenuous activity
Driving Restrictions No driving for 2 weeks
Bathing Restrictions OK to Shower
Instructions:
Stand-Alone Forms: Vascular Surg Discharge Instr
Changes to Home Medications: Yes
Discharge Medications:
DC Medications w/original date entered in [employer]
aspirin 81 mg chewable tablet 81 mg PO 1300 Blood Clot Prevention/Tx 09/01/24
atorvastatin 10 mg tablet 10 mg PO 1300 High Cholesterol 09/01/24
metformin 500 mg tablet 500 mg PO 1300 Diabetes 09/01/24
multivitamin 1 tab PO DAILY Supplement 09/01/24
valsartan 160 mg-hydrochlorothiazide 12.5 mg tablet 1 tab PO 1300 Blood Pressure 09/01/24
Bioma Probiotic 1 cap PO DAILY Supplement 07/23/25
Calcium, D3, K2, B12 1 cap PO DAILY Supplement 07/23/25
ascorbic acid (vitamin C) 1,000 mg tablet (Vitamin C) 1,000 mg PO 1300 Supplement 07/23/25
cholecalciferol (vitamin D3) 125 mcg (5,000 unit) tablet (Vitamin D3) 125 mcg PO 1300 Supplement 07/23/25
clopidogrel 75 mg tablet (Plavix) 75 mg PO 1300 Blood Clot Prevention/Tx 07/23/25
coenzyme Q10 30 mg capsule 30 mg PO 1300 Supplement 07/23/25
omega 2-tvb-nfq-fish oil 2 cap PO 1300 High Cholesterol 07/23/25
omeprazole 40 mg capsule,delayed release 40 mg PO 1300 Gastrointestinal Issue 07/23/25
oxycodone 5 mg tablet 5 mg PO Q4HPRN PRN moderate pain #10 tabs 08/05/25
Home Medication Changes
oxycodone 5 mg tablet 5 mg PO Q4HPRN PRN moderate pain #10 tabs 08/05/25
Pending Results: No
--- NOTE | 2025-08-05 16:44 | CM ---
Patient has been medically cleared for discharge to her sisters home at: [address], [place] [address] with [facility] [employer] office RN, PT/OT services. Fax #: [phone]. [facility] has been notified.
--- NOTE | 2025-08-05 18:35 | PTCARENOTE ---
Discharge order received. SisterDeja, at bedside for discharge education. Discharge instructions provided. All questions answered. IVs removed. Tele removed. Pt discharged with all belongings with sister via wheelchair.
== END 2025-08-05 18:25 | disposition home health service (06) | DRG 272 ==
LOC: ICU 07:59
PROVIDERS: Nurse Practitioner; Nurse Practitioner Acute Care; ADMITTING PHYSICIAN Surgery Vascular Surgery; CONSULT PHYSICIAN Internal Medicine; PRIMARYCARE PHYSICIAN Internal Medicine
PROC: 047L3EZ Dilation of Left Femoral Artery with Two Intraluminal Devices, Percutaneous Approach (ICD-10-PCS; 2025-08-03)
PROC: 047J3EZ Dilation of Left External Iliac Artery with Two Intraluminal Devices, Percutaneous Approach (ICD-10-PCS; 2025-08-03)
PROC: B41D1ZZ Fluoroscopy of Aorta and Bilateral Lower Extremity Arteries using Low Osmolar Contrast (ICD-10-PCS; 2025-08-03)
PROC: 047H3Z1 Dilation of Right External Iliac Artery using Drug-Coated Balloon, Percutaneous Approach (ICD-10-PCS; 2025-08-03)
PROC: 04UJ0KZ Supplement Left External Iliac Artery with Nonautologous Tissue Substitute, Open Approach (ICD-10-PCS; 2025-08-03)
PROC: 04CJ0ZZ Extirpation of Matter from Left External Iliac Artery, Open Approach (ICD-10-PCS; 2025-08-03)
DX: E11.51 Type 2 diabetes mellitus with diabetic peripheral angiopathy without gangrene (principal); I70.213 Atherosclerosis of native arteries of extremities with intermittent claudication, bilateral legs; I10 Essential (primary) hypertension; K21.9 Gastro-esophageal reflux disease without esophagitis; E66.9 Obesity, unspecified; K76.0 Fatty (change of) liver, not elsewhere classified; E11.36 Type 2 diabetes mellitus with diabetic cataract; R91.8 Other nonspecific abnormal finding of lung field; Z96.643 Presence of artificial hip joint, bilateral; Z87.891 Personal history of nicotine dependence; Z83.3 Family history of diabetes mellitus; Z82.49 Family history of ischemic heart disease and other diseases of the circulatory system; Z80.3 Family history of malignant neoplasm of breast; Z80.0 Family history of malignant neoplasm of digestive organs; Z79.84 Long term (current) use of oral hypoglycemic drugs
CPT/HCPCS: 36415; 37221; 37226; 71045; 71046; 75625; 75716; 80048; 82962; 83036; 83735; 84100; 85025; 85027; 85610; 85730; 86850; 86900; 86901; 88304; 88311; 93005; 97162; C1725; C1769; C1874; C1894; Q9967

== ENCOUNTER → 2025-09-15 11:26 | Outpatient (REF) | payer MEDICARE, OTHER, SELFPAY | LOC: RAD 11:26 | PROVIDERS: ATTENDING PHYSICIAN Registered Nurse; FAMILY PHYSICIAN Internal Medicine | DX: I73.9 Peripheral vascular disease, unspecified (principal) | CPT/HCPCS: 93978 ==

== ENCOUNTER → 2025-09-17 11:03 | Outpatient (REF) | payer MEDICARE, OTHER, SELFPAY | LOC: RAD 11:03 | PROVIDERS: ATTENDING PHYSICIAN Registered Nurse; FAMILY PHYSICIAN Internal Medicine | DX: I73.9 Peripheral vascular disease, unspecified (principal) | CPT/HCPCS: 93922; 93925 ==

== ENCOUNTER → 2025-09-27 09:57 | Outpatient (REF) | payer MEDICARE, OTHER, SELFPAY | LOC: RAD 09:57 | PROVIDERS: ATTENDING PHYSICIAN Internal Medicine Gastroenterology; FAMILY PHYSICIAN Internal Medicine | DX: R10.32 Left lower quadrant pain (principal) | CPT/HCPCS: 74177; Q9967 ==

== ENCOUNTER → 2025-10-22 16:05 | Outpatient (REF) | payer MEDICARE, OTHER, SELFPAY ==
[2025-10-22 17:43] LABS: ALT (SGPT) 66 U/L (0-35); AST (SGOT) 57 U/L (14-36); Albumin 4.7 g/dl (3.5-5.0); Alkaline Phosphatase 137 U/L (38-126); Blood Urea Nitrogen 12 mg/dl (7-17); Calcium 9.8 mg/dl (8.4-10.2); Carbon Dioxide 28 mmol/L (22-30); Chloride 101 mmol/L (98-107); Glucose 128 mg/dl (70-99); HDL Cholesterol 38 mg/dl; LDL Cholesterol, Calculated 112 mg/dl; Potassium 4.2 mmol/L (3.5-5.1); Sodium 136 mmol/L (135-145); Total Protein 7.7 g/dl (6.3-8.2); Very Low Density Lipoprotein 40 mg/dl (0-30); eGFR > 60.00
[2025-10-23 10:04] LABS: Glycohemoglobin (HgbA1c) 8.0 % (4.0-5.9)
== END ==
LOC: REG 16:05
PROVIDERS: ATTENDING PHYSICIAN Internal Medicine
DX: E11.65 Type 2 diabetes mellitus with hyperglycemia (principal)
CPT/HCPCS: 36415; 80053; 80061; 83036